=== PATIENT | male | born 1990 | race Caucasian/White ===

== ENCOUNTER 2019-11-23 12:23 | Emergency (ER) | payer SELFPAY ==
[~2019-11-23] VITALS: Ht 177.8 cm; Wt 113.0 kg
[2019-11-23] MEDS ORDERED: AMOX500C2 PO (13:19)
[2019-11-23] MEDS ORDERED: HYDR-3870 PO (13:19)
--- NOTE | 2019-11-23 13:21 | ED EENT ---
History of Present Illness General Chief Complaint: Dental Problems/Pain Stated Complaint: DENTAL PAIN Nursing Triage Note: Pt c/o R sided dental pain for over a week. Pt unsure if pain is top/bottom or both. Pt reports being unable to get an apt with a dentist. Source: patient Exam Limitations: no limitations History of Present Illness Date Seen by Provider: November 23, 2019 Time Seen by Provider: 13:16 Initial Comments To ER with right-sided dental pain for about a week. The pain is intermittent, unsure of his right upper or right lower. He does have a lot of dental crowding he states, perhaps that is the cause of his pain. He cannot identify any one particular tooth that has caused this. Tried to call a dentist but no one is accepting new patients at this time. Timing/Duration: intermittent Severity: mild, moderate Location: mouth, dental Prearrival Treatment: no prearrival treatment Associated Symptoms: denies symptoms Allergies and Home Medications Allergies Coded Allergies: No Known Drug Allergies (Unverified , 11/23/19) Patient Home Medication List Home Medication List Reviewed: Yes Review of Systems Review of Systems Constitutional: see HPI Eyes: No Symptoms Reported Ears: No Symptoms Reported Nose: no symptoms reported Mouth: see HPI Throat: no symptoms reported Respiratory: no symptoms reported Cardiovascular: no symptoms reported Musculoskeletal: no symptoms reported Skin: no symptoms reported Neurological: No Symptoms Reported Hematologic/Lymphatic: No Symptoms Reported Past Zudkrsa-Xaacbg-Ijwtnz Hx Patient Social History Alcohol Use: Occasionally Uses Recreational Drug Use: No Smoking Status: Never a Smoker 2nd Hand Smoke Exposure: No Recent Foreign Travel: No Contact w/Someone Who Travel: No Recent Infectious Disease Expo: No Recent Hopitalizations: No Seasonal Allergies Seasonal Allergies: Yes Past Medical History Surgeries: No Respiratory: No Cardiac: Yes Hypertension Neurological: No Genitourinary: No Gastrointestinal: No Musculoskeletal: No Endocrine: No HEENT: No Cancer: No Psychosocial: Yes Depression Integumentary: No Blood Disorders: No Physical Exam Vital Signs Vital Signs - First Documented 11/23/19 13:03 Temp 36.7 Pulse 86 Resp 18 B/P (MAP) 139/82 (101) Pulse Ox 98 O2 Delivery Room Air Height, Weight, BMI Height: '" Weight: lbs. oz. kg; 35.00 BMI Method: General Appearance: WD/WN, no apparent distress Eyes: bilateral eye normal inspection, bilateral eye PERRL, bilateral eye EOMI Ears: bilateral ear auricle normal, bilateral ear canal normal, bilateral ear TM normal Mouth/Throat: normal mouth inspection, pharynx normal, other (no palpable fluctuant abscess, no does have some overcrowding of teeth.) Neck: non-tender, full range of motion Respiratory: lungs clear, normal breath sounds, no respiratory distress, no accessory muscle use Neurologic/Psychiatric: alert, normal mood/affect, oriented x 3 Skin: normal color, warm/dry Progress/Results/Core Measures Results/Orders Vital Signs/I&O 11/23/19 13:03 Temp 36.7 Pulse 86 Resp 18 B/P (MAP) 139/82 (101) Pulse Ox 98 O2 Delivery Room Air Blood Pressure Mean: 101 Departure Impression Primary Impression: Pain, dental Disposition: HOME, SELF-CARE Condition: Stable Departure-Patient Inst. Decision time for Depature: 13:19 Referrals: [facility] (PCP) Primary Care Physician Patient Instructions: Gingivitis (DC), Dental Pain Add. Discharge Instructions: 1. Call a dentist of your choosing to be seen. Medication as directed. All discharge instructions reviewed with patient and/or family. Voiced understanding. Scripts Amoxicillin (Amoxicillin) 500 Mg Capsule 500 MG PO TID, #21 CAP 0 Refills Prov: TRINA BARBER APRN 11/23/19 TRINA BARBER APRN November 23, 2019 13:21
[2019-11-23 13:32] VITALS: BP 139/82
--- OUTSIDE RECORDS SUMMARY | 2019-11-23 15:21 | XMS REPORT ---
Author Author Charlie SHARP Organization [facility] Address [address] [place] [address] Care Team Providers Care Clerk Of Court Name Role Phone KELSY SHARP Unavailable PROBLEMS Type Condition ICD9-CM Code [id number] Code Onset Dates Condition S tatus SNOMED Code Problem Essential hypertension I10 Active 61199695 Problem Moderate episode of recurrent major depressive disorder F33.1 Active 388233887 Problem Major depressive disorder, single episode, moderate F32.1 Active 43652002 ALLERGIES No Information ENCOUNTERS Encounter Location Date Diagnosis [place] [address] [facility] [id number] [address] [place] [phone] Jun, [place] [address] [id number] [address] [place] [phone] Feb, Moderate episode of recurren t major depressive disorder F33.1 [place] [address] [id number] [address] [place] [phone] Feb, Essential hypertension I10 a nd Major depressive disorder, single episode, moderate F32.1 [place] [address] [id number] [address] [place] [phone] Oct, Moderate episode of recurren t major depressive disorder F33.1 [facility] [address] [id number] [address] [place] [phone] Sep, Moderate episode of recurren t major depressive disorder F33.1 [place] [address] [id number] [address] [place] [phone] Sep, Moderate episode of recurren t major depressive disorder F33.1 [place] [address] [facility] [id number] [address] [place] [phone] Aug, Moderate episode of recurren t major depressive disorder F33.1 [facility] [address] [id number] [address] [place] [phone] Jul, Moderate episode of recurren t major depressive disorder F33.1 [facility] [address] [id number] [address] [place] [phone] Apr, Moderate episode of recurren t major depressive disorder F33.1 [facility] [address] [id number] [address] [place] [phone] Apr, Essential hypertension I10 [facility] [address] [id number] [address] [place] [phone] Dec, Moderate episode of recurren t major depressive disorder F33.1 [facility] [address] [id number] [address] [place] [phone] November, Major depressive disorder, s ramin episode, moderate F32.1 [facility] [address] [id number] [address] [place] [phone] November, [facility] [address] [id number] [address] [place] [phone] November, Depressive disorder F32.9 an d Essential hypertension I10 [facility] [address] [id number] [address] [place] [phone] November, [facility] [address] [facility] [id number] [address] [place] [phone] Sep, Acute bronchitis due to infe ction J20.8 [facility] [address] [id number] [address] [place] [phone] May, Essential hypertension I10 [facility] [address] [id number] [address] [place] [phone] Apr, [facility] [address] [facility] [id number] [address] [place] [phone] 17 Aug, 2016 Essential hypertension I10 [facility] [address] [id number] [address] [place] [phone] Jun, Other viral agents as the ca use of diseases classified elsewhere B97.89 ; Acute upper respiratory infection, unspecified J06.9 and Cough R05 [facility] [address] [id number] [address] [place] [phone] Feb, Essential hypertension I10 [facility] [address] [id number] [address] [place] [phone] Jan, [facility] [address] [id number] [address] [place] [phone] Jan, Essential hypertension, pj gn 401.1 [facility] [address] [id number] [address] [place] [phone] Oct, [facility] [address] [facility] [id number] [address] [place] [phone] Oct, [facility] [address] [id number] [address] [place] [phone] Jul, [facility] [address] [id number] [address] [place] [phone] Jul, [facility] [address] [facility] [id number] [address] [place] [phone] Jul, [facility] [address] [facility] [id number] [address] [place] [phone] Jul, [facility] [address] [id number] [address] [place] [phone] Jun, [facility] [address] [id number] [address] [place] [phone] Jun, [facility] [address] [id number] [address] [place] [phone] Jun, [facility] [address] [facility] [id number] [address] [place] [phone] Jun, [facility] [address] [id number] [address] [place] [phone] May, [facility] [address] [id number] [address] [place] [phone] May, [facility] [address] [id number] [address] [place] [phone] Feb, [facility] [address] [id number] [address] [place] [phone] Feb, [facility] [address] [id number] [address] [place] [phone] Feb, [facility] [address] [id number] [address] [place] [phone] Feb, [facility] [address] [id number] [address] [place] [phone] Feb, [facility] [address] [id number] [address] [place] [phone] Feb, [facility] [address] [id number] [address] [place] [phone] Jan, [facility] [address] [id number] [address] [place] [phone] Jan, [facility] [address] [id number] [address] [place] [phone] Jan, [facility] [address] [id number] [address] [place] [phone] Jan, [facility] [address] [id number] [address] [place] [phone] Jan, [facility] [address] [id number] [address] [place] [phone] Jan, IMMUNIZATIONS No Known Immunizations SOCIAL HISTORY Never Assessed REASON FOR VISIT PLAN OF CARE VITAL SIGNS Height 69 in 2014-02-10 Weight 232.99 lbs 2014-02-10 Temperature 98.5 degrees Fahrenheit 2014-02-10 Heart Rate 84 bpm 2014-02-10 Respiratory Rate 16 2014-02-10 Blood pressure systolic 158 mmHg 2014-02-10 Blood pressure diastolic 104 mmHg 2014-02-10 MEDICATIONS Unknown Medications RESULTS No Results PROCEDURES Procedure Date Ordered Result Body Site ASSAY THYROID STIM HORMONE February 10, 2014 COMPREHEN METABOLIC PANEL February 10, 2014 VENIPUNCT, ROUTINE* February 10, 2014 INSTRUCTIONS MEDICATIONS ADMINISTERED No Known Medications MEDICAL (GENERAL) HISTORY Type Description Date Medical History seasonal allergies Medical History hypertension Medical History no hx seizures
--- OUTSIDE RECORDS SUMMARY | 2019-11-23 15:21 | XMS REPORT ---
Author Author Charlie SHARP Organization [facility] Address [address] [place] [address] Care Team Providers Care Flying Shear Operator Name Role Phone KELSY SHARP Unavailable PROBLEMS Type Condition ICD9-CM Code HDG97-NO Code Onset Dates Condition S tatus SNOMED Code Problem Essential hypertension I10 Active 61257769 Problem Moderate episode of recurrent major depressive disorder F33.1 Active 608439108 Problem Major depressive disorder, single episode, moderate F32.1 Active 67403815 ALLERGIES No Information ENCOUNTERS Encounter Location Date Diagnosis [facility] [address] [facility] [id number] [address] [place] [phone] 16 Oct, 2019 Acute non-recurrent frontal sinusitis J01.10 [facility] [address] [facility] [id number] [address] [place] [phone] Oct, Laceration of right index fi nger without foreign body with damage to nail, initial encounter S61.310A and Encounter for immunization Z23 [facility] [address] [facility] [id number] [address] [place] [phone] Aug, [facility] [address] [facility] [id number] [address] [place] [phone] Jun, Moderate episode of recurren t major depressive disorder F33.1 [facility] [address] [facility] [id number] [address] [place] [phone] Feb, Moderate episode of recurren t major depressive disorder F33.1 [facility] [address] [facility] [id number] [address] [place] [phone] Feb, Essential hypertension I10 a nd Major depressive disorder, single episode, moderate F32.1 [facility] [address] [facility] [id number] [address] [place] [phone] Oct, Moderate episode of recurren t major depressive disorder F33.1 [facility] [address] [id number] [address] [place] [phone] Sep, Moderate episode of recurren t major depressive disorder F33.1 [facility] [address] [id number] [address] [place] [phone] Sep, Moderate episode of recurren t major depressive disorder F33.1 [facility] [address] [id number] [address] [place] [phone] Aug, Moderate episode of recurren t major depressive disorder F33.1 [facility] [address] [id number] [address] [place] [phone] Jul, Moderate episode of recurren t major depressive disorder F33.1 [facility] [address] [id number] [address] [place] [phone] Apr, Moderate episode of recurren t major depressive disorder F33.1 [facility] [address] [id number] [address] [place] [phone] Apr, Essential hypertension I10 [facility] [address] [id number] [address] [place] [phone] Dec, Moderate episode of recurren t major depressive disorder F33.1 [facility] [address] [id number] [address] [place] [phone] November, Major depressive disorder, s ramin episode, moderate F32.1 [facility] [address] [id number] [address] [place] [phone] November, [facility] [address] [id number] [address] [place] [phone] November, Depressive disorder F32.9 an d Essential hypertension I10 [facility] [address] [id number] [address] [place] [phone] November, [facility] [address] [place] [id number] [address] [place] [phone] Sep, Acute bronchitis due to infe ction J20.8 [facility] [address] [place] [id number] [address] [place] [phone] May, Essential hypertension I10 [facility] [address] [facility] [id number] [address] [place] [phone] Apr, [facility] [address] [facility] [id number] [address] [place] [phone] Aug, Essential hypertension I10 [facility] [address] [facility] [id number] [address] [place] [phone] Jun, Other viral agents as the ca use of diseases classified elsewhere B97.89 ; Acute upper respiratory infection, unspecified J06.9 and Cough R05 [facility] [address] [place] [id number] [address] [place] [phone] Feb, Essential hypertension I10 [facility] [address] [place] [id number] [address] [place] [phone] Jan, [facility] [address] [place] [id number] [address] [place] [phone] Jan, Essential hypertension, pj gn 401.1 [facility] [address] [facility] [id number] [address] [place] [phone] Oct, [facility] [address] [place] [id number] [address] [place] [phone] Oct, [facility] [address] [facility] [id number] [address] [place] [phone] Jul, [facility] [address] [place] [id number] [address] [place] [phone] Jul, [facility] [address] [place] [id number] [address] [place] [id number] Jul, [facility] [address] [place] [id number] [address] [place] [phone] Jul, [facility] [address] [id number] [address] [place] [address], [place] [address] Jun, [facility] [address] [id number] [address] [place] [address], [place] [address] Jun, [facility] [address] [id number] [address] [place] [address], [place] [address] Jun, [facility] [address] [id number] [address] [place] [address], [place] [address] Jun, [facility] [address] [id number] [address] [place] [address], [place] [address] May, [facility] [address] [id number] [address] [place] [address], [place] [address] May, [facility] [address] [id number] [address] [place] [address], [place] [address] Feb, [facility] [address] [id number] [address] [place] [address], [place] [address] Feb, [facility] [address] [id number] [address] [place] [address], [place] [address] Feb, [facility] [address] [id number] [address] [place] [address], [place] [address] Feb, [facility] [address] [id number] [address] [place] [address], [place] [address] Feb, [facility] [address] [id number] [address] [place] [address], [place] [address] Feb, [facility] [address] [id number] [address] [place] [address], [place] [address] Jan, [facility] [address] [id number] [address] [place] [address], [place] [address] Jan, [facility] [address] [id number] [address] [place] [address], [place] [address] Jan, [facility] [address] [id number] [address] [place] [phone] Jan, [facility] [address] [facility] [id number] [address] [place] [id number] Jan, [facility] [address] [facility] [id number] [address] [place] [phone] Jan, IMMUNIZATIONS No Known Immunizations SOCIAL HISTORY Never Assessed REASON FOR VISIT PLAN OF CARE VITAL SIGNS MEDICATIONS No Known Medications RESULTS No Results PROCEDURES No Known procedures INSTRUCTIONS MEDICATIONS ADMINISTERED No Known Medications MEDICAL (GENERAL) HISTORY Type Description Date Medical History seasonal allergies Medical History hypertension Medical History no hx seizures
--- OUTSIDE RECORDS SUMMARY | 2019-11-23 15:21 | XMS REPORT ---
Author Author Charlie Fraga Doctor Organization [facility] Address Unknown Phone Unavailable Care Team Providers Care Social Insurance Adviser Name Role Phone Migration, Doctor Unavailable Unavailable PROBLEMS Type Condition ICD9-CM Code [id number] Code Onset Dates Condition S tatus SNOMED Code Problem Essential hypertension I10 Active 45221072 Problem Moderate episode of recurrent major depressive disorder F33.1 Active 790694195 Problem Major depressive disorder, single episode, moderate F32.1 Active [id number] ALLERGIES No Information ENCOUNTERS Encounter Location Date Diagnosis [facility] [address] [id number] [address] [place] [address] November, [facility] [address] [id number] [address] [place] [address] Oct, Moderate episode of recurren t major depressive disorder F33.1 [facility] [address] [id number] [address] [place] [address] Sep, Moderate episode of recurren t major depressive disorder F33.1 [facility] [address] [id number] [address] [place] [address] Sep, Moderate episode of recurren t major depressive disorder F33.1 [facility] [address] [id number] [address] [place] [address] Aug, Moderate episode of recurren t major depressive disorder F33.1 [facility] [address] [id number] [address] [place] [address] Jul, Moderate episode of recurren t major depressive disorder F33.1 [facility] [address] [id number] [address] [place] [address] Apr, Moderate episode of recurren t major depressive disorder F33.1 [facility] [address] [id number] [address] [place] [address] Apr, Essential hypertension I10 [facility] [address] [facility] [id number] [address] [place] [address] Dec, Moderate episode of recurren t major depressive disorder F33.1 [facility] [address] [facility] [address] [facility] [id number] [address] [place] [address] November, Major depressive disorder, s ramin episode, moderate F32.1 [facility] [address] [facility] [address] [facility] [id number] [address] [place] [address] November, [facility] [address] [facility] [address] [facility] [id number] [address] [place] [address] November, Depressive disorder F32.9 an d Essential hypertension I10 [facility] [address] [facility] [address] [facility] [id number] [address] [place] [address] November, [facility] [address] [address] Sep, Acute bronchitis due to infe ction J20.8 [facility] [address] [facility] [address] [facility] [id number] [address] [place] [address] May, Essential hypertension I10 [facility] [address] [place] [id number] [address] [place] [phone] Apr, [facility] [address] [place] [id number] [address] [place] [phone] Aug, Essential hypertension I10 [facility] [address] [facility] [address] [facility] [id number] [address] [place] [address] Jun, Other viral agents as the ca use of diseases classified elsewhere B97.89 ; Acute upper respiratory infection, unspecified J06.9 and Cough R05 [facility] [address] [facility] [address] [facility] [id number] [address] [place] [address] Feb, Essential hypertension I10 [facility] [address] [place] [id number] [address] [place] [address] Jan, [facility] [address] [id number] [address] [place] [address], [place] [address] Jan, Essential hypertension, pj gn 401.1 [facility] [address] [id number] [address] [place] [address], [place] [address] Oct, [facility] [address] [id number] [address] [place] [address], [place] [address] Oct, [facility] [address] [id number] [address] [place] [address], [place] [address] Jul, [facility] [address] [id number] [address] [place] [address], [place] [address] Jul, [facility] [address] [id number] [address] [place] [address], [place] [address] Jul, [facility] [address] [id number] [address] [place] [address], [place] [address] Jul, [facility] [address] [id number] [address] [place] [address], [place] [address] Jun, [facility] [address] [id number] [address] [place] [address], [place] [address] Jun, [facility] [address] [id number] [address] [place] [address] Jun, [facility] [address] [id number] [address] [place] [address] Jun, [facility] [address] [id number] [address] [place] [address] May, [facility] [address] [id number] [address] [place] [address], [place] [address] May, [facility] [address] [id number] [address] [place] [address], [place] [address] Feb, [facility] [address] [id number] [address] [place] [address] Feb, [facility] [address] [id number] [address] [place] [address] Feb, [facility] [address] [id number] [address] [place] [address] Feb, [facility] [address] [id number] [address] [place] [address] Feb, [facility] [address] [id number] [address] [place] [address] Feb, [facility] [address] [id number] [address] [place] [address] Jan, [facility] [address] [id number] [address] [place] [address] Jan, [facility] [address] [id number] [address] [place] [address] Jan, [facility] [address] [id number] [address] [place] [address] Jan, [facility] [address] [id number] [address] [place] [address] Jan, [facility] [address] [id number] [address] [place] [address] Jan, IMMUNIZATIONS No Known Immunizations SOCIAL HISTORY Never Assessed REASON FOR VISIT [facility] PLAN OF CARE VITAL SIGNS MEDICATIONS Unknown Medications RESULTS No Results PROCEDURES No Known procedures INSTRUCTIONS MEDICATIONS ADMINISTERED No Known Medications MEDICAL (GENERAL) HISTORY Type Description Date Medical History seasonal allergies Medical History hypertension Medical History no hx seizures
--- OUTSIDE RECORDS SUMMARY | 2019-11-23 15:21 | XMS REPORT ---
Author Author Charlie SAWYER Organization [facility] Address Unknown Care Team Providers Care It Administrator Name Role Phone SREEDHAR SAWYER Unavailable PROBLEMS Type Condition ICD9-CM Code [id number] Code Onset Dates Condition S tatus SNOMED Code Problem Moderate episode of recurrent major depressive disorder F33.1 Active [id number] Problem Essential hypertension I10 Active 92033470 Problem Major depressive disorder, single episode, moderate F32.1 Active 60873401 ALLERGIES No Information ENCOUNTERS Encounter Location Date Diagnosis [place] [address] [facility] [id number] [address] [place] [address] Dec, Moderate episode of recurren t major depressive disorder F33.1 [facility] [address] [id number] [address] [place] [address] November, Major depressive disorder, s ramin episode, moderate F32.1 [facility] [address] [id number] [address] [place] [address] November, [facility] [address] [facility] [id number] [address] [place] [address] November, Depressive disorder F32.9 an d Essential hypertension I10 [facility] [address] [id number] [address] [place] [address] November, [facility] [address] [facility] [id number] [address] [place] [address] Sep, Acute bronchitis due to infe ction J20.8 [facility] [address] [id number] [address] [place] [address] May, Essential hypertension I10 [place] [id number] [facility] [id number] [address] [place] [address] Apr, [facility] [address] [facility] [id number] [address] [place] [address] Aug, Essential hypertension I10 [facility] [address] [facility] [id number] [address] [place] [address] Jun, Other viral agents as the ca use of diseases classified elsewhere B97.89 ; Acute upper respiratory infection, unspecified J06.9 and Cough R05 [facility] [address] [facility] [id number] [address] [place] [address] Feb, Essential hypertension I10 [facility] [address] [facility] [id number] [address] [place] [address] Jan, [facility] [address] [facility] [id number] [address] [place] [address] Jan, Essential hypertension, pj gn 401.1 [facility] [address] [facility] [id number] [address] [place] [address] Oct, [facility] [address] [facility] [id number] [address] [place] [address] Oct, [facility] [address] [facility] [id number] [address] [place] [address] Jul, [facility] [address] [facility] [id number] [address] [place] [address] Jul, [facility] [address] [facility] [id number] [address] [place] [address] Jul, [facility] [address] [facility] [id number] [address] [place] [address] Jul, [facility] [address] [facility] [id number] [address] [place] [address] Jun, [facility] [address] [facility] [id number] [address] [place] [address] Jun, [facility] [address] [facility] [id number] [address] [place] [address] Jun, [facility] [address] [id number] [address] [place] [address], [place] [address] Jun, [facility] [address] [id number] [address] [place] [address], [place] [address] May, [facility] [address] [id number] [address] [place] [address], [place] [address] May, [facility] [address] [id number] [address] [place] [address], [place] [address] Feb, [facility] [address] [id number] [address] [place] [address], [place] [address] Feb, [facility] [address] [id number] [address] [place] [address], [place] [address] Feb, [facility] [address] [id number] [address] [place] [address], [place] [address] Feb, [facility] [address] [id number] [address] [place] [address], [place] [address] Feb, [facility] [address] [id number] [address] [place] [address], [place] [address] Feb, [facility] [address] [id number] [address] [place] [address] Jan, [facility] [address] [id number] [address] [place] [address], [place] [address] Jan, [facility] [address] [id number] [address] [place] [address] Jan, [facility] [address] [id number] [address] [place] [address] Jan, [facility] [address] [id number] [address] [place] [address] Jan, [facility] [address] [id number] [address] [place] [address] Jan, IMMUNIZATIONS No Known Immunizations SOCIAL HISTORY Never Assessed REASON FOR VISIT [facility] PLAN OF CARE Activity Details Follow Up next available Reason: VITAL SIGNS MEDICATIONS Medication Instructions Dosage Frequency Start Date End Date Duration S tatus Lisinopril 20 mg Orally Once a day 1 tablet 24h November, 90 days Active Sertraline HCl 50 mg Orally Once a day after evening meal 1 tablet November, 30 day(s) Active RESULTS No Results PROCEDURES Procedure Date Ordered Result Body Site Psych diagnostic evaluation, established patient December 17, 2017 INSTRUCTIONS MEDICATIONS ADMINISTERED No Known Medications MEDICAL (GENERAL) HISTORY Type Description Date Medical History seasonal allergies Medical History hypertension
--- OUTSIDE RECORDS SUMMARY | 2019-11-23 15:21 | XMS REPORT ---
Author Author Charlie MANZANARES Organization [facility] Address [address] [place] [address] Care Team Providers Care Breeding Technician Name Role Phone MOISES MANZANARES Unavailable PROBLEMS Type Condition ICD9-CM Code [id number] Code Onset Dates Condition S tatus SNOMED Code Problem Essential hypertension I10 Active 51830408 Problem Moderate episode of recurrent major depressive disorder F33.1 Active 808839584 Problem Major depressive disorder, single episode, moderate F32.1 Active 25264615 ALLERGIES No Information ENCOUNTERS Encounter Location Date Diagnosis [facility] [address] [id number] [address] [place] [address] Feb, [facility] [address] [id number] [address] [place] [address] Jan, [facility] [address] [id number] [address] [place] [address] Oct, Moderate episode of recurren t major depressive disorder F33.1 [facility] [address] [id number] [address] [place] [address] Sep, Moderate episode of recurren t major depressive disorder F33.1 [facility] [address] [id number] [address] [place] [address] Sep, Moderate episode of recurren t major depressive disorder F33.1 [facility] [address] [id number] [address] [place] [address] Aug, Moderate episode of recurren t major depressive disorder F33.1 [facility] [address] [id number] [address] [place] [address] Jul, Moderate episode of recurren t major depressive disorder F33.1 [facility] [address] [id number] [address] [place] [address] Apr, Moderate episode of recurren t major depressive disorder F33.1 [facility] [address] [facility] [id number] [address] [place] [address] Apr, Essential hypertension I10 [facility] [address] [facility] [id number] [address] [place] [address] Dec, Moderate episode of recurren t major depressive disorder F33.1 [facility] [address] [facility] [id number] [address] [place] [address] November, Major depressive disorder, s ramin episode, moderate F32.1 [facility] [address] [facility] [id number] [address] [place] [address] November, [facility] [address] [facility] [id number] [address] [place] [address] November, Depressive disorder F32.9 an d Essential hypertension I10 [facility] [address] [place] [id number] [address] [place] [address] November, [facility] [address] [facility] [id number] [address] [place] [address] Sep, Acute bronchitis due to infe ction J20.8 [facility] [address] [facility] [id number] [address] [place] [address] May, Essential hypertension I10 [facility] [address] [facility] [id number] [address] [place] [address] Apr, [facility] [address] [facility] [id number] [address] [place] [address] Aug, Essential hypertension I10 [facility] [address] [facility] [id number] [address] [place] [address] Jun, Other viral agents as the ca use of diseases classified elsewhere B97.89 ; Acute upper respiratory infection, unspecified J06.9 and Cough R05 [facility] [address] [facility] [id number] [address] [place] [address] Feb, Essential hypertension I10 [facility] [address] [id number] [address] [place] [address], [place] [address] Jan, [facility] [address] [id number] [address] [place] [address], [place] [address] Jan, Essential hypertension, pj gn 401.1 [facility] [address] [id number] [address] [place] [address], [place] [address] Oct, [facility] [address] [id number] [address] [place] [address], [place] [address] Oct, [facility] [address] [id number] [address] [place] [address], [place] [address] Jul, [facility] [address] [id number] [address] [place] [address], [place] [address] Jul, [facility] [address] [id number] [address] [place] [address], [place] [address] Jul, [facility] [address] [id number] [address] [place] [address], [place] [address] Jul, [facility] [address] [id number] [address] [place] [address], [place] [address] Jun, [facility] [address] [id number] [address] [place] [address], [place] [address] Jun, [facility] [address] [id number] [address] [place] [address], [place] [address] Jun, [facility] [address] [id number] [address] [place] [address], [place] [address] Jun, [facility] [address] [id number] [address] [place] [address], [place] [address] May, [facility] [address] [id number] [address] [place] [address], [place] [address] May, [facility] [address] [id number] [address] [place] [address], [place] [address] Feb, [facility] [address] [id number] [address] [place] [address] Feb, [facility] [address] [id number] [address] [place] [address] Feb, [facility] [address] [id number] [address] [place] [address] Feb, [facility] [address] [id number] [address] [place] [phone] Feb, [facility] [address] [id number] [address] [place] [address] Feb, [facility] [address] [id number] [address] [place] [address] Jan, [facility] [address] [id number] [address] [place] [address] Jan, [facility] [address] [id number] [address] [place] [address] Jan, [facility] [address] [id number] [address] [place] [address] Jan, [facility] [address] [id number] [address] [place] [address] Jan, [facility] [address] [id number] [address] [place] [phone] Jan, IMMUNIZATIONS No Known Immunizations SOCIAL HISTORY Never Assessed REASON FOR VISIT Intake PLAN OF CARE Activity Details Follow Up next available Reason:anger VITAL SIGNS MEDICATIONS Medication Instructions Dosage Frequency Start Date End Date Duration S tatus Lisinopril 20 mg Orally Once a day 1 tablet 24h November, 90 days Active Wellbutrin SR 100 MG Orally in the morning and one midday 1 tablet Aug, 30 day(s) Active Sertraline HCl 50 mg Orally Once a day 1 tablet 24h Active RESULTS No Results PROCEDURES Procedure Date Ordered Result Body Site Psych diagnostic evaluation, established patient September 30, 2018 INSTRUCTIONS MEDICATIONS ADMINISTERED No Known Medications MEDICAL (GENERAL) HISTORY Type Description Date Medical History seasonal allergies Medical History hypertension Medical History no hx seizures
--- OUTSIDE RECORDS SUMMARY | 2019-11-23 15:21 | XMS REPORT ---
Author Author Charlie SERNA Organization [facility] Address [address] [place] [address] Care Team Providers Care Bolt Loader Name Role Phone KAREEMBJMICHAEL Unavailable PROBLEMS Type Condition ICD9-CM Code [id number] Code Onset Dates Condition S tatus SNOMED Code Problem Moderate episode of recurrent major depressive disorder F33.1 Active 466393796 Problem Essential hypertension I10 Active 27875477 Problem Major depressive disorder, single episode, moderate F32.1 Active 41487357 ALLERGIES No Known Allergies ENCOUNTERS Encounter Location Date Diagnosis [facility] [address] [id number] [address] [place] [phone] Dec, Moderate episode of recurren t major depressive disorder F33.1 [facility] [address] [id number] [address] [place] [address] November, Major depressive disorder, s ramin episode, moderate F32.1 [facility] [address] [id number] [address] [place] [address] November, [facility] [address] [id number] [address] [place] [phone] November, Depressive disorder F32.9 an d Essential hypertension I10 [facility] [address] [id number] [address] [place] [phone] November, [facility] [address] [id number] [address] [place] [address] Sep, Acute bronchitis due to infe ction J20.8 [facility] [address] [id number] [address] [place] [address] May, Essential hypertension I10 [facility] [address] [id number] [address] [place] [address] Apr, [facility] [address] [id number] [address] [place] [address] Aug, Essential hypertension I10 [facility] [address] [id number] [address] [place] [address] Jun, Other viral agents as the ca use of diseases classified elsewhere B97.89 ; Acute upper respiratory infection, unspecified J06.9 and Cough R05 [facility] [address] [id number] [address] [place] [address] Feb, Essential hypertension I10 [facility] [address] [id number] [address] [place] [address] Jan, [facility] [address] [facility] [id number] [address] [place] [address] Jan, Essential hypertension, pj gn 401.1 [facility] [address] [id number] [address] [place] [phone] Oct, [facility] [address] [id number] [address] [place] [phone] Oct, [facility] [address] [facility] [id number] [address] [place] [phone] Jul, [facility] [address] [facility] [id number] [address] [place] [address] Jul, [facility] [address] [id number] [address] [place] [phone] Jul, [facility] [address] [id number] [address] [place] [address] Jul, [facility] [address] [id number] [address] [place] [phone] Jun, [facility] [address] [facility] [id number] [address] [place] [phone] Jun, [facility] [address] [id number] [address] [place] [address] Jun, [facility] [address] [id number] [address] [place] [address], [place] [address] Jun, [facility] [address] [id number] [address] [place] [phone] May, [facility] [address] [id number] [address] [place] [address], [place] [address] May, [facility] [address] [id number] [address] [place] [address], [place] [address] Feb, [facility] [address] [id number] [address] [place] [address], [place] [address] Feb, [facility] [address] [id number] [address] [place] [address], [place] [address] Feb, [facility] [address] [id number] [address] [place] [address], [place] [address] Feb, [facility] [address] [id number] [address] [place] [address], [place] [address] Feb, [facility] [address] [id number] [address] [place] [phone] Feb, [facility] [address] [id number] [address] [place] [address], [place] [address] Jan, [facility] [address] [id number] [address] [place] [address] Jan, [facility] [address] [id number] [address] [place] [address] Jan, [facility] [address] [id number] [address] [place] [address] Jan, [facility] [address] [id number] [address] [place] [phone] Jan, [facility] [address] [id number] [address] [place] [address] Jan, IMMUNIZATIONS No Known Immunizations SOCIAL HISTORY Never Assessed REASON FOR VISIT intake -Hilario MCCANN PLAN OF CARE Activity Details Follow Up 6 Weeks, prn Reason: VITAL SIGNS Height 69 in 2017-12-22 Weight 227.4 lbs 2017-12-22 Heart Rate 88 bpm 2017-12-22 Respiratory Rate 20 2017-12-22 BMI 33.58 kg/m2 2017-12-22 Blood pressure systolic 130 mmHg 2017-12-22 Blood pressure diastolic 74 mmHg 2017-12-22 MEDICATIONS Medication Instructions Dosage Frequency Start Date End Date Duration S tatus Multi Vitamin Daily Acti ve Sertraline HCl 50 mg Orally Once a day after evening meal 1 tablet November, Active Lisinopril 20 mg Orally Once a day 1 tablet 24h November, 90 days Active RESULTS No Results PROCEDURES No Known procedures INSTRUCTIONS MEDICATIONS ADMINISTERED No Known Medications MEDICAL (GENERAL) HISTORY Type Description Date Medical History seasonal allergies Medical History hypertension
--- OUTSIDE RECORDS SUMMARY | 2019-11-23 15:21 | XMS REPORT ---
Author Author Charlie SHARP Organization [facility] Address [address] [place] [address] Care Team Providers Care Truck Trailer Final Inspector Name Role Phone KELSY SHARP Unavailable PROBLEMS Type Condition ICD9-CM Code [id number] Code Onset Dates Condition S tatus SNOMED Code Problem Essential hypertension I10 Active 84557986 Problem Moderate episode of recurrent major depressive disorder F33.1 Active 175004194 Problem Major depressive disorder, single episode, moderate F32.1 Active 81576821 ALLERGIES No Information ENCOUNTERS Encounter Location Date Diagnosis [place] [address] [address] [facility] [id number] [address] [place] [address] Feb, [place] [address] [id number] [address] [place] [address] Feb, Essential hypertension I10 a nd Major depressive disorder, single episode, moderate F32.1 [place] [address] [id number] [address] [place] [address] Oct, Moderate episode of recurren t major depressive disorder F33.1 [place] [address] [id number] [address] [place] [address] Sep, Moderate episode of recurren t major depressive disorder F33.1 [facility] [address] [id number] [address] [place] [address] Sep, Moderate episode of recurren t major depressive disorder F33.1 [place] [address] [id number] [address] [place] [address] Aug, Moderate episode of recurren t major depressive disorder F33.1 [place] [address] [id number] [address] [place] [address] Jul, Moderate episode of recurren t major depressive disorder F33.1 [facility] [address] [id number] [address] [place] [address] Apr, Moderate episode of recurren t major depressive disorder F33.1 [facility] [address] [id number] [address] [place] [address] Apr, Essential hypertension I10 [facility] [address] [id number] [address] [place] [address] Dec, Moderate episode of recurren t major depressive disorder F33.1 [facility] [address] [id number] [address] [place] [address] November, Major depressive disorder, s ramin episode, moderate F32.1 [facility] [address] [id number] [address] [place] [address] November, [facility] [address] [facility] [id number] [address] [place] [address] November, Depressive disorder F32.9 an d Essential hypertension I10 [facility] [address] [id number] [address] [place] [address] November, [facility] [address] [facility] [id number] [address] [place] [address] Sep, Acute bronchitis due to infe ction J20.8 [facility] [address] [facility] [id number] [address] [place] [address] May, Essential hypertension I10 [facility] [address] [id number] [address] [place] [address] Apr, [facility] [address] [facility] [id number] [address] [place] [address] Aug, Essential hypertension I10 [facility] [address] [id number] [address] [place] [address] Jun, Other viral agents as the ca use of diseases classified elsewhere B97.89 ; Acute upper respiratory infection, unspecified J06.9 and Cough R05 [facility] [address] [id number] [address] [place] [address], [place] [address] Feb, Essential hypertension I10 [facility] [address] [id number] [address] [place] [address], [place] [address] Jan, [facility] [address] [id number] [address] [place] [address], [place] [address] Jan, Essential hypertension, pj gn 401.1 [facility] [address] [id number] [address] [place] [address], [place] [address] Oct, [facility] [address] [id number] [address] [place] [address], [place] [address] Oct, [facility] [address] [id number] [address] [place] [address], [place] [address] Jul, [facility] [address] [id number] [address] [place] [address], [place] [address] Jul, [facility] [address] [id number] [address] [place] [address], [place] [address] Jul, [facility] [address] [id number] [address] [place] [address], [place] [address] Jul, [facility] [address] [id number] [address] [place] [address], [place] [address] Jun, [facility] [address] [id number] [address] [place] [address], [place] [address] Jun, [facility] [address] [id number] [address] [place] [address], [place] [address] Jun, [facility] [address] [id number] [address] [place] [address], [place] [address] Jun, [facility] [address] [id number] [address] [place] [address], [place] [address] May, [facility] [address] [id number] [address] [place] [address], [place] [address] May, [facility] [address] [id number] [address] [place] [phone] Feb, [facility] [address] [id number] [address] [place] [address] Feb, [facility] [address] [id number] [address] [place] [address] Feb, [facility] [address] [id number] [address] [place] [address] Feb, [facility] [address] [id number] [address] [place] [address] Feb, [facility] [address] [id number] [address] [place] [address] Feb, [facility] [address] [id number] [address] [place] [address] Jan, [facility] [address] [id number] [address] [place] [address] Jan, [facility] [address] [id number] [address] [place] [address] Jan, [facility] [address] [id number] [address] [place] [address] Jan, [facility] [address] [id number] [address] [place] [address] Jan, [facility] [address] [id number] [address] [place] [address] Jan, IMMUNIZATIONS No Known Immunizations SOCIAL HISTORY Never Assessed REASON FOR VISIT PLAN OF CARE VITAL SIGNS Height 69 in 2014-06-22 Weight 237.7 lbs 2014-06-22 Temperature 97.5 degrees Fahrenheit 2014-06-22 Heart Rate 82 bpm 2014-06-22 Respiratory Rate 16 2014-06-22 Blood pressure systolic 142 mmHg 2014-06-22 Blood pressure diastolic 84 mmHg 2014-06-22 MEDICATIONS Unknown Medications RESULTS No Results PROCEDURES No Known procedures INSTRUCTIONS MEDICATIONS ADMINISTERED No Known Medications MEDICAL (GENERAL) HISTORY Type Description Date Medical History seasonal allergies Medical History hypertension Medical History no hx seizures
--- OUTSIDE RECORDS SUMMARY | 2019-11-23 15:21 | XMS REPORT ---
Author Author Charlie SHARP Organization [facility] Address [address] [place] [address] Care Team Providers Care Afternoon Nanny Name Role Phone KELYS SHARP Unavailable PROBLEMS Type Condition ICD9-CM Code ENE37-HG Code Onset Dates Condition S tatus SNOMED Code Problem Essential hypertension I10 Active 44963102 Problem Moderate episode of recurrent major depressive disorder F33.1 Active 964188484 Problem Major depressive disorder, single episode, moderate F32.1 Active 80947401 ALLERGIES No Information ENCOUNTERS Encounter Location Date Diagnosis [facility] [address] [facility] [id number] [address] [place] [address] 16 Oct, 2019 Acute non-recurrent frontal sinusitis J01.10 [facility] [address] [facility] [id number] [address] [place] [address] Oct, Laceration of right index fi nger without foreign body with damage to nail, initial encounter S61.310A and Encounter for immunization Z23 [facility] [address] [facility] [id number] [address] [place] [address] Aug, [facility] [address] [facility] [id number] [address] [place] [address] Jun, Moderate episode of recurren t major depressive disorder F33.1 [facility] [address] [facility] [id number] [address] [place] [phone] Feb, Moderate episode of recurren t major depressive disorder F33.1 [facility] [address] [facility] [id number] [address] [place] [address] Feb, Essential hypertension I10 a nd Major depressive disorder, single episode, moderate F32.1 [facility] [address] [facility] [id number] [address] [place] [phone] Oct, Moderate episode of recurren t major depressive disorder F33.1 [facility] [address] [id number] [address] [place] [address] Sep, Moderate episode of recurren t major depressive disorder F33.1 [facility] [address] [id number] [address] [place] [phone] Sep, Moderate episode of recurren t major depressive disorder F33.1 [facility] [address] [id number] [address] [place] [address] Aug, Moderate episode of recurren t major depressive disorder F33.1 [facility] [address] [id number] [address] [place] [phone] Jul, Moderate episode of recurren t major depressive disorder F33.1 [facility] [address] [id number] [address] [place] [address] Apr, Moderate episode of recurren t major depressive disorder F33.1 [facility] [address] [id number] [address] [place] [address] Apr, Essential hypertension I10 [facility] [address] [id number] [address] [place] [address] Dec, Moderate episode of recurren t major depressive disorder F33.1 [facility] [address] [id number] [address] [place] [address] November, Major depressive disorder, s ramin episode, moderate F32.1 [facility] [address] [id number] [address] [place] [address] November, [facility] [address] [id number] [address] [place] [address] November, Depressive disorder F32.9 an d Essential hypertension I10 [facility] [address] [id number] [address] [place] [address] November, [facility] [address] [place] [id number] [address] [place] [address] Sep, Acute bronchitis due to infe ction J20.8 [facility] [address] [place] [id number] [address] [place] [address] May, Essential hypertension I10 [facility] [address] [facility] [id number] [address] [place] [phone] Apr, [facility] [address] [facility] [id number] [address] [place] [address] Aug, Essential hypertension I10 [facility] [address] [facility] [id number] [address] [place] [address] Jun, Other viral agents as the ca use of diseases classified elsewhere B97.89 ; Acute upper respiratory infection, unspecified J06.9 and Cough R05 [facility] [address] [place] [id number] [address] [place] [phone] Feb, Essential hypertension I10 [facility] [address] [place] [id number] [address] [place] [address] Jan, [facility] [address] [place] [id number] [address] [place] [phone] Jan, Essential hypertension, pj gn 401.1 [facility] [address] [facility] [id number] [address] [place] [phone] Oct, [facility] [address] [place] [id number] [address] [place] [phone] Oct, [facility] [address] [facility] [id number] [address] [place] [address] Jul, [facility] [address] [place] [id number] [address] [place] [phone] Jul, [facility] [address] [place] [id number] [address] [place] [address] Jul, [facility] [address] [place] [id number] [address] [place] [phone] Jul, [facility] [address] [id number] [address] [place] [address], [place] [address] Jun, [facility] [address] [id number] [address] [place] [address], [place] [address] Jun, [facility] [address] [id number] [address] [place] [address], [place] [address] Jun, [facility] [address] [id number] [address] [place] [address], [place] [address] Jun, [facility] [address] [id number] [address] [place] [address], [place] [address] May, [facility] [address] [id number] [address] [place] [address], [place] [address] May, [facility] [address] [id number] [address] [place] [address], [place] [address] Feb, [facility] [address] [id number] [address] [place] [address], [place] [address] Feb, [facility] [address] [id number] [address] [place] [address], [place] [address] Feb, [facility] [address] [id number] [address] [place] [address], [place] [address] Feb, [facility] [address] [id number] [address] [place] [address], [place] [address] Feb, [facility] [address] [id number] [address] [place] [address], [place] [address] Feb, [facility] [address] [id number] [address] [place] [address], [place] [address] Jan, [facility] [address] [id number] [address] [place] [address], [place] [address] Jan, [facility] [address] [id number] [address] [place] [address], [place] [address] Jan, [facility] [address] [id number] [address] [place] [phone] Jan, [facility] [address] [facility] [id number] [address] [place] [phone] Jan, [facility] [address] [facility] [id number] [address] [place] [phone] Jan, IMMUNIZATIONS No Known Immunizations SOCIAL HISTORY Never Assessed REASON FOR VISIT PLAN OF CARE VITAL SIGNS Height 69 in 2014-07-19 Weight 239.2 lbs 2014-07-19 Temperature 97.6 degrees Fahrenheit 2014-07-19 Heart Rate 88 bpm 2014-07-19 Respiratory Rate 20 2014-07-19 Blood pressure systolic 140 mmHg 2014-07-19 Blood pressure diastolic 90 mmHg 2014-07-19 MEDICATIONS No Known Medications RESULTS No Results PROCEDURES No Known procedures INSTRUCTIONS MEDICATIONS ADMINISTERED No Known Medications MEDICAL (GENERAL) HISTORY Type Description Date Medical History seasonal allergies Medical History hypertension Medical History no hx seizures
--- OUTSIDE RECORDS SUMMARY | 2019-11-23 15:21 | XMS REPORT ---
Author Author Charlie MORA Organization [facility] Address [address] [place] [address] Care Team Providers Care Power House Control Room Operator Name Role Phone MICHAEL MORA Unavailable PROBLEMS Type Condition ICD9-CM Code [id number] Code Onset Dates Condition S tatus SNOMED Code Problem Essential hypertension I10 Active 62352079 Problem Moderate episode of recurrent major depressive disorder F33.1 Active 610977134 Problem Major depressive disorder, single episode, moderate F32.1 Active 25958105 ALLERGIES No Information ENCOUNTERS Encounter Location Date Diagnosis [place] [id number] [facility] [id number] [address] [place] [address] Feb, [facility] [address] [id number] [address] [place] [phone] Feb, [facility] [address] [facility] [id number] [address] [place] [phone] Oct, Moderate episode of recurren t major depressive disorder F33.1 [place] [address] [facility] [id number] [address] [place] [phone] Sep, Moderate episode of recurren t major depressive disorder F33.1 [facility] [address] [id number] [address] [place] [address] Sep, Moderate episode of recurren t major depressive disorder F33.1 [facility] [address] [facility] [id number] [address] [place] [phone] Aug, Moderate episode of recurren t major depressive disorder F33.1 [facility] [address] [facility] [id number] [address] [place] [address] Jul, Moderate episode of recurren t major depressive disorder F33.1 [facility] [address] [id number] [address] [place] [phone] Apr, Moderate episode of recurren t major depressive disorder F33.1 [facility] [address] [id number] [address] [place] [phone] Apr, Essential hypertension I10 [facility] [address] [facility] [id number] [address] [place] [phone] Dec, Moderate episode of recurren t major depressive disorder F33.1 [facility] [address] [id number] [address] [place] [phone] November, Major depressive disorder, s ramin episode, moderate F32.1 [facility] [address] [id number] [address] [place] [phone] November, [facility] [address] [facility] [id number] [address] [place] [address] November, Depressive disorder F32.9 an d Essential hypertension I10 [facility] [address] [facility] [id number] [address] [place] [phone] November, [facility] [address] [facility] [id number] [address] [place] [address] Sep, Acute bronchitis due to infe ction J20.8 [facility] [address] [facility] [id number] [address] [place] [address] May, Essential hypertension I10 [facility] [address] [facility] [id number] [address] [place] [phone] Apr, [facility] [address] [facility] [id number] [address] [place] [phone] Aug, Essential hypertension I10 [facility] [address] [facility] [id number] [address] [place] [phone] Jun, Other viral agents as the ca use of diseases classified elsewhere B97.89 ; Acute upper respiratory infection, unspecified J06.9 and Cough R05 [facility] [address] [id number] [address] [place] [address], [place] [address] Feb, Essential hypertension I10 [facility] [address] [id number] [address] [place] [address], [place] [address] Jan, [facility] [address] [id number] [address] [place] [address], [place] [address] Jan, Essential hypertension, pj gn 401.1 [facility] [address] [id number] [address] [place] [address], [place] [address] Oct, [facility] [address] [id number] [address] [place] [address], [place] [address] Oct, [facility] [address] [id number] [address] [place] [address], [place] [address] Jul, [facility] [address] [id number] [address] [place] [address], [place] [address] Jul, [facility] [address] [id number] [address] [place] [address], [place] [address] Jul, [facility] [address] [id number] [address] [place] [address], [place] [address] Jul, [facility] [address] [id number] [address] [place] [address], [place] [address] Jun, [facility] [address] [id number] [address] [place] [address], [place] [address] Jun, [facility] [address] [id number] [address] [place] [address], [place] [address] Jun, [facility] [address] [id number] [address] [place] [address], [place] [address] Jun, [facility] [address] [id number] [address] [place] [address], [place] [address] May, [facility] [address] [id number] [address] [place] [address], [place] [address] May, [facility] [address] [id number] [address] [place] [phone] Feb, [facility] [address] [id number] [address] [place] [address] Feb, [facility] [address] [id number] [address] [place] [address] Feb, [facility] [address] [id number] [address] [place] [phone] Feb, [facility] [address] [id number] [address] [place] [phone] Feb, [facility] [address] [id number] [address] [place] [phone] Feb, [facility] [address] [id number] [address] [place] [phone] Jan, [facility] [address] [id number] [address] [place] [address] Jan, [facility] [address] [id number] [address] [place] [phone] Jan, [facility] [address] [id number] [address] [place] [address] Jan, [facility] [address] [id number] [address] [place] [phone] Jan, [facility] [address] [id number] [address] [place] [address] Jan, IMMUNIZATIONS No Known Immunizations SOCIAL HISTORY Never Assessed REASON FOR VISIT rene/ryan wilson ma PLAN OF CARE Activity Details Follow Up 6 Weeks Reason: VITAL SIGNS Height 69 in 2018-09-30 Weight 240.5 lbs 2018-09-30 Heart Rate 93 bpm 2018-09-30 Respiratory Rate 20 2018-09-30 BMI 35.51 kg/m2 2018-09-30 Blood pressure systolic 142 mmHg 2018-09-30 Blood pressure diastolic 78 mmHg 2018-09-30 MEDICATIONS Medication Instructions Dosage Frequency Start Date End Date Duration S tatus Lisinopril 20 mg Orally Once a day 1 tablet 24h November, Active Sertraline HCl 100 MG Orally Once a day 1 tablet 24h 30 days Active Wellbutrin SR 100 MG Orally in the morning and one midday 1 tablet Aug, 30 days Active Sertraline HCl 50 mg Orally Once a day 1 tablet 24h Active RESULTS No Results PROCEDURES No Known procedures INSTRUCTIONS MEDICATIONS ADMINISTERED No Known Medications MEDICAL (GENERAL) HISTORY Type Description Date Medical History seasonal allergies Medical History hypertension Medical History no hx seizures
--- OUTSIDE RECORDS SUMMARY | 2019-11-23 15:21 | XMS REPORT ---
Author Author Charlie Dan Organization [facility] Address [address] [place] [address] Care Team Providers Care Drawer Upfitter Name Role Phone SILAS Dan Unavailable PROBLEMS Type Condition ICD9-CM Code [id number] Code Onset Dates Condition S tatus SNOMED Code Problem Essential hypertension I10 Active 07086857 Problem Moderate episode of recurrent major depressive disorder F33.1 Active 581732322 Problem Major depressive disorder, single episode, moderate F32.1 Active 27019476 ALLERGIES No Information ENCOUNTERS Encounter Location Date Diagnosis [facility] [address] [facility] [id number] [address] [place] [phone] 16 Oct, 2019 Acute non-recurrent frontal sinusitis J01.10 [facility] [address] [facility] [id number] [address] [place] [address] Oct, Laceration of right index fi nger without foreign body with damage to nail, initial encounter S61.310A and Encounter for immunization Z23 [facility] [address] [facility] [id number] [address] [place] [address] Aug, [facility] [address] [facility] [id number] [address] [place] [address] Jun, Moderate episode of recurren t major depressive disorder F33.1 [facility] [address] [facility] [id number] [address] [place] [phone] Feb, Moderate episode of recurren t major depressive disorder F33.1 [facility] [address] [facility] [id number] [address] [place] [address] Feb, Essential hypertension I10 a nd Major depressive disorder, single episode, moderate F32.1 [facility] [address] [id number] [address] [place] [address] Oct, Moderate episode of recurren t major depressive disorder F33.1 [facility] [address] [id number] [address] [place] [phone] Sep, Moderate episode of recurren t major depressive disorder F33.1 [facility] [address] [id number] [address] [place] [address] Sep, Moderate episode of recurren t major depressive disorder F33.1 [facility] [address] [id number] [address] [place] [phone] Aug, Moderate episode of recurren t major depressive disorder F33.1 [facility] [address] [id number] [address] [place] [phone] Jul, Moderate episode of recurren t major depressive disorder F33.1 [facility] [address] [id number] [address] [place] [address] Apr, Moderate episode of recurren t major depressive disorder F33.1 [facility] [address] [id number] [address] [place] [phone] Apr, Essential hypertension I10 [facility] [address] [id number] [address] [place] [phone] Dec, Moderate episode of recurren t major depressive disorder F33.1 [facility] [address] [id number] [address] [place] [address] November, Major depressive disorder, s ramin episode, moderate F32.1 [facility] [address] [id number] [address] [place] [phone] November, [facility] [address] [id number] [address] [place] [phone] November, Depressive disorder F32.9 an d Essential hypertension I10 [facility] [address] [id number] [address] [place] [phone] November, [facility] [address] [facility] [id number] [address] [place] [phone] Sep, Acute bronchitis due to infe ction J20.8 [facility] [address] [facility] [id number] [address] [place] [address] May, Essential hypertension I10 [facility] [address] [place] [id number] [address] [place] [phone] Apr, [facility] [address] [facility] [id number] [address] [place] [phone] Aug, Essential hypertension I10 [facility] [address] [facility] [id number] [address] [place] [phone] Jun, Other viral agents as the ca use of diseases classified elsewhere B97.89 ; Acute upper respiratory infection, unspecified J06.9 and Cough R05 [facility] [address] [facility] [id number] [address] [place] [address] Feb, Essential hypertension I10 [facility] [address] [facility] [id number] [address] [place] [address] Jan, [facility] [address] [place] [id number] [address] [place] [address] Jan, Essential hypertension, pj gn 401.1 [facility] [address] [place] [id number] [address] [place] [phone] Oct, [facility] [address] [place] [id number] [address] [place] [phone] Oct, [facility] [address] [facility] [id number] [address] [place] [phone] Jul, [facility] [address] [place] [id number] [address] [place] [phone] Jul, [facility] [address] [facility] [id number] [address] [place] [phone] Jul, [facility] [address] [place] [id number] [address] [place] [phone] Jul, [facility] [address] [id number] [facility] [place] [address] Jun, [facility] [address] [id number] [address] [place] [address], [place] [address] Jun, [facility] [address] [id number] [address] [place] [address], [place] [address] Jun, [facility] [address] [id number] [address] [place] [address], [place] [address] Jun, [facility] [address] [id number] [address] [place] [address], [place] [address] May, [facility] [address] [id number] [address] [place] [address], [place] [address] May, [facility] [address] [id number] [address] [place] [address], [place] [address] Feb, [facility] [address] [id number] [address] [place] [address], [place] [address] Feb, [facility] [address] [id number] [address] [place] [address], [place] [address] Feb, [facility] [address] [id number] [address] [place] [address], [place] [address] Feb, [facility] [address] [id number] [address] [place] [address], [place] [address] Feb, [facility] [address] [id number] [address] [place] [address], [place] [address] Feb, [facility] [address] [id number] [address] [place] [address], [place] [address] Jan, [facility] [address] [id number] [address] [place] [address], [place] [address] Jan, [facility] [address] [id number] [address] [place] [address], [place] [address] Jan, [facility] [address] [id number] [address] [place] [phone] Jan, [facility] [address] [facility] [id number] [address] [place] [phone] Jan, [facility] [address] [facility] [id number] [address] [place] [phone] Jan, IMMUNIZATIONS No Known Immunizations SOCIAL HISTORY Never Assessed REASON FOR VISIT PLAN OF CARE VITAL SIGNS MEDICATIONS No Known Medications RESULTS No Results PROCEDURES No Known procedures INSTRUCTIONS MEDICATIONS ADMINISTERED No Known Medications MEDICAL (GENERAL) HISTORY Type Description Date Medical History seasonal allergies Medical History hypertension Medical History no hx seizures
--- OUTSIDE RECORDS SUMMARY | 2019-11-23 15:21 | XMS REPORT ---
Author Author Charlie Fraga Doctor Organization [facility] Address Unknown Phone Unavailable Care Team Providers Care Chief Procurement Officer Name Role Phone Migration, Doctor Unavailable Unavailable PROBLEMS Type Condition ICD9-CM Code [id number] Code Onset Dates Condition S tatus SNOMED Code Problem Essential hypertension I10 Active 63700259 Problem Moderate episode of recurrent major depressive disorder F33.1 Active 395693332 Problem Major depressive disorder, single episode, moderate F32.1 Active 47394527 ALLERGIES No Information ENCOUNTERS Encounter Location Date Diagnosis [place] [address] [id number] [address] [place] [phone] Jun, [place] [address] [id number] [address] [place] [phone] Feb, Moderate episode of recurren t major depressive disorder F33.1 [facility] [address] [id number] [address] [place] [phone] Feb, Essential hypertension I10 a nd Major depressive disorder, single episode, moderate F32.1 [facility] [address] [id number] [address] [place] [address] Oct, Moderate episode of recurren t major depressive disorder F33.1 [facility] [address] [id number] [address] [place] [phone] Sep, Moderate episode of recurren t major depressive disorder F33.1 [facility] [address] [id number] [address] [place] [phone] Sep, Moderate episode of recurren t major depressive disorder F33.1 [facility] [address] [id number] [address] [place] [id number] Aug, Moderate episode of recurren t major depressive disorder F33.1 [facility] [address] [id number] [address] [place] [phone] Jul, Moderate episode of recurren t major depressive disorder F33.1 [facility] [address] [facility] [id number] [address] [place] [phone] Apr, Moderate episode of recurren t major depressive disorder F33.1 [facility] [address] [facility] [id number] [address] [place] [phone] Apr, Essential hypertension I10 [facility] [address] [facility] [id number] [address] [place] [phone] Dec, Moderate episode of recurren t major depressive disorder F33.1 [facility] [address] [facility] [id number] [address] [place] [phone] November, Major depressive disorder, s ramin episode, moderate F32.1 [facility] [address] [facility] [id number] [address] [place] [id number] November, [facility] [address] [facility] [id number] [address] [place] [phone] November, Depressive disorder F32.9 an d Essential hypertension I10 [facility] [address] [facility] [id number] [address] [place] [address] November, [facility] [address] [facility] [id number] [address] [place] [address] Sep, Acute bronchitis due to infe ction J20.8 [facility] [address] [facility] [id number] [address] [place] [phone] May, Essential hypertension I10 [facility] [address] [facility] [id number] [address] [place] [phone] Apr, [facility] [address] [facility] [id number] [address] [place] [id number] Aug, Essential hypertension I10 [facility] [address] [facility] [id number] [address] [place] [phone] Jun, Other viral agents as the ca use of diseases classified elsewhere B97.89 ; Acute upper respiratory infection, unspecified J06.9 and Cough R05 [facility] [address] [id number] [address] [place] [phone] Feb, Essential hypertension I10 [facility] [address] [id number] [address] [place] [phone] Jan, [facility] [address] [id number] [address] [place] [id number] Jan, Essential hypertension, pj gn 401.1 [facility] [address] [id number] [address] [place] [address], [place] [address] Oct, [facility] [address] [id number] [address] [place] [phone] Oct, [facility] [address] [id number] [address] [place] [phone] Jul, [facility] [address] [id number] [address] [place] [id number] Jul, [facility] [address] [id number] [address] [place] [phone] Jul, [facility] [address] [id number] [address] [place] [phone] Jul, [facility] [address] [id number] [address] [place] [phone] Jun, [facility] [address] [id number] [address] [place] [phone] Jun, [facility] [address] [id number] [address] [place] [phone] Jun, [facility] [address] [id number] [address] [place] [id number] Jun, [facility] [address] [id number] [address] [place] [id number] May, [facility] [address] [id number] [address] [place] [phone] May, [facility] [address] [id number] [address] [place] [phone] Feb, [facility] [address] [id number] [address] [place] [phone] Feb, [facility] [address] [id number] [address] [place] [phone] Feb, [facility] [address] [id number] [address] [place] [id number] Feb, [facility] [address] [id number] [address] [place] [id number] Feb, [facility] [address] [id number] [address] [place] [id number] Feb, [facility] [address] [id number] [address] [place] [id number] Jan, [facility] [address] [id number] [address] [place] [id number] Jan, [facility] [address] [id number] [address] [place] [id number] Jan, [facility] [address] [id number] [address] [place] [id number] Jan, [facility] [address] [id number] [address] [place] [id number] Jan, [facility] [address] [id number] [address] [place] [id number] Jan, IMMUNIZATIONS No Known Immunizations SOCIAL HISTORY Never Assessed REASON FOR VISIT PLAN OF CARE VITAL SIGNS MEDICATIONS Unknown Medications RESULTS No Results PROCEDURES No Known procedures INSTRUCTIONS MEDICATIONS ADMINISTERED No Known Medications MEDICAL (GENERAL) HISTORY Type Description Date Medical History seasonal allergies Medical History hypertension Medical History no hx seizures
--- OUTSIDE RECORDS SUMMARY | 2019-11-23 15:21 | XMS REPORT ---
Author Author Charlie SERNA MICHAEL Organization [facility] Address [address] [place] [address] Care Team Providers Care Perinatal Director Name Role Phone SADIEBJ GRIMMYLA Unavailable PROBLEMS Type Condition ICD9-CM Code DUX80-AH Code Onset Dates Condition S tatus SNOMED Code Problem Moderate episode of recurrent major depressive disorder F33.1 Active 399676259 Problem Essential hypertension I10 Active 00234906 Problem Major depressive disorder, single episode, moderate F32.1 Active 01165620 ALLERGIES No Information ENCOUNTERS Encounter Location Date Diagnosis [facility] [address] [id number] [address] [place] [phone] Jul, [facility] [address] [id number] [address] [place] [phone] Apr, Moderate episode of recurren t major depressive disorder F33.1 [facility] [address] [id number] [address] [place] [phone] Apr, Essential hypertension I10 [facility] [address] [id number] [address] [place] [phone] Dec, Moderate episode of recurren t major depressive disorder F33.1 [facility] [address] [id number] [address] [place] [phone] November, Major depressive disorder, s ramin episode, moderate F32.1 [facility] [address] [id number] [address] [place] [phone] November, [facility] [address] [id number] [address] [place] [phone] November, Depressive disorder F32.9 an d Essential hypertension I10 [facility] [address] [id number] [address] [place] [phone] November, [facility] [address] [facility] [id number] [address] [place] [phone] Sep, Acute bronchitis due to infe ction J20.8 [facility] [address] [facility] [id number] [address] [place] [phone] May, Essential hypertension I10 [facility] [address] [place] [id number] [address] [place] [phone] Apr, [facility] [address] [facility] [id number] [address] [place] [phone] Aug, Essential hypertension I10 [facility] [address] [facility] [id number] [address] [place] [phone] Jun, Other viral agents as the ca use of diseases classified elsewhere B97.89 ; Acute upper respiratory infection, unspecified J06.[address] [facility] [address] [place] [id number] [address] [place] [phone] Feb, Essential hypertension I10 [facility] [address] [place] [id number] [address] [place] [phone] Jan, [facility] [address] [address] Jan, Essential hypertension, pj gn 401.1 [facility] [address] [place] [id number] [address] [place] [phone] Oct, [facility] [address] [place] [id number] [address] [place] [phone] Oct, [facility] [address] [place] [id number] [address] [place] [phone] Jul, [facility] [address] [place] [id number] [address] [place] [phone] Jul, [facility] [address] [place] [id number] [address] [place] [phone] Jul, [facility] [address] [id number] [address] [place] [address], [place] [address] Jul, [facility] [address] [id number] [address] [place] [address], [place] [address] Jun, [facility] [address] [id number] [address] [place] [address], [place] [address] Jun, [facility] [address] [id number] [address] [place] [address], [place] [address] Jun, [facility] [address] [id number] [address] [place] [address], [place] [address] Jun, [facility] [address] [id number] [address] [place] [address], [place] [address] May, [facility] [address] [id number] [address] [place] [address], [place] [address] May, [facility] [address] [id number] [address] [place] [address], [place] [address] Feb, [facility] [address] [id number] [address] [place] [address], [place] [address] Feb, [facility] [address] [id number] [address] [place] [address], [place] [address] Feb, [facility] [address] [id number] [address] [place] [address], [place] [address] Feb, [facility] [address] [id number] [address] [place] [address], [place] [address] Feb, [facility] [address] [id number] [address] [place] [address], [place] [address] Feb, [facility] [address] [id number] [address] [place] [address], [place] [address] Jan, [facility] [address] [id number] [address] [place] [address], [place] [address] Jan, [facility] [address] [id number] [address] [place] [address], [place] [address] Jan, [facility] [address] [facility] [id number] [address] [place] [phone] Jan, [facility] [address] [facility] [id number] [address] [place] [phone] Jan, [facility] [address] [facility] [id number] [address] [place] [phone] Jan, IMMUNIZATIONS No Known Immunizations SOCIAL HISTORY Never Assessed REASON FOR VISIT f/u PLAN OF CARE Activity Details Follow Up 3 Months Reason: VITAL SIGNS Height 69 in 2018-04-27 Weight 239 lbs 2018-04-27 BMI 35.29 kg/m2 2018-04-27 MEDICATIONS Medication Instructions Dosage Frequency Start Date End Date Duration S tatus Lisinopril 20 mg Orally Once a day 1 tablet 24h November, 90 days Active Multi Vitamin Daily Acti ve Sertraline HCl 50 mg Orally Once a day after evening meal 1 tablet 30 days Active RESULTS No Results PROCEDURES No Known procedures INSTRUCTIONS MEDICATIONS ADMINISTERED No Known Medications MEDICAL (GENERAL) HISTORY Type Description Date Medical History seasonal allergies Medical History hypertension
--- OUTSIDE RECORDS SUMMARY | 2019-11-23 15:21 | XMS REPORT ---
Author Author Charlie SHARP Organization [facility] Address [address] [place] [address] Care Team Providers Care Gauger Chief Name Role Phone KELSY SHARP Unavailable PROBLEMS Type Condition ICD9-CM Code QNF35-AY Code Onset Dates Condition S tatus SNOMED Code Problem Essential hypertension I10 Active 52862701 Problem Moderate episode of recurrent major depressive disorder F33.1 Active 916363533 Problem Major depressive disorder, single episode, moderate F32.1 Active 39732981 ALLERGIES No Information ENCOUNTERS Encounter Location Date Diagnosis [place] [address] [facility] [id number] [address] [place] [phone] Jun, [place] [address] [id number] [address] [place] [phone] Feb, Moderate episode of recurren t major depressive disorder F33.1 [place] [address] [id number] [address] [place] [address] Feb, Essential hypertension I10 a nd Major depressive disorder, single episode, moderate F32.1 [place] [address] [id number] [address] [place] [phone] Oct, Moderate episode of recurren t major depressive disorder F33.1 [facility] [address] [id number] [address] [place] [phone] Sep, Moderate episode of recurren t major depressive disorder F33.1 [place] [address] [id number] [address] [place] [address] Sep, Moderate episode of recurren t major depressive disorder F33.1 [place] [address] [id number] [address] [place] [address] Aug, Moderate episode of recurren t major depressive disorder F33.1 [facility] [address] [id number] [address] [place] [phone] Jul, Moderate episode of recurren t major depressive disorder F33.1 [facility] [address] [id number] [address] [place] [address] Apr, Moderate episode of recurren t major depressive disorder F33.1 [facility] [address] [id number] [address] [place] [phone] Apr, Essential hypertension I10 [facility] [address] [id number] [address] [place] [phone] Dec, Moderate episode of recurren t major depressive disorder F33.1 [facility] [address] [id number] [address] [place] [address] November, Major depressive disorder, s ramin episode, moderate F32.1 [facility] [address] [id number] [address] [place] [phone] November, [facility] [address] [id number] [address] [place] [phone] November, Depressive disorder F32.9 an d Essential hypertension I10 [facility] [address] [id number] [address] [place] [address] November, [facility] [address] [facility] [id number] [address] [place] [phone] Sep, Acute bronchitis due to infe ction J20.8 [facility] [address] [id number] [address] [place] [phone] May, Essential hypertension I10 [facility] [address] [id number] [address] [place] [phone] Apr, [facility] [address] [facility] [id number] [address] [place] [phone] 17 Aug, 2016 Essential hypertension I[address] [facility] [address] [id number] [address] [place] [phone] Jun, Other viral agents as the ca use of diseases classified elsewhere B97.89 ; Acute upper respiratory infection, unspecified J06.9 and Cough R05 [facility] [address] [id number] [address] [place] [phone] Feb, Essential hypertension I10 [facility] [address] [id number] [address] [place] [address] Jan, [facility] [address] [id number] [address] [place] [address] Jan, Essential hypertension, pj gn 401.1 [facility] [address] [id number] [address] [place] [phone] Oct, [facility] [address] [facility] [id number] [address] [place] [phone] Oct, [facility] [address] [id number] [address] [place] [phone] Jul, [facility] [address] [id number] [address] [place] [phone] Jul, [facility] [address] [facility] [id number] [address] [place] [phone] Jul, [facility] [address] [facility] [id number] [address] [place] [phone] Jul, [facility] [address] [id number] [address] [place] [phone] Jun, [facility] [address] [id number] [address] [place] [phone] Jun, [facility] [address] [id number] [address] [place] [phone] Jun, [facility] [address] [facility] [id number] [address] [place] [phone] Jun, [facility] [address] [id number] [address] [place] [phone] May, [facility] [address] [id number] [address] [place] [phone] May, [facility] [address] [id number] [address] [place] [phone] Feb, [facility] [address] [id number] [address] [place] [phone] Feb, [facility] [address] [id number] [address] [place] [phone] Feb, [facility] [address] [id number] [address] [place] [phone] Feb, [facility] [address] [id number] [address] [place] [phone] Feb, [facility] [address] [id number] [address] [place] [phone] Feb, [facility] [address] [id number] [address] [place] [phone] Jan, [facility] [address] [id number] [address] [place] [phone] Jan, [facility] [address] [id number] [address] [place] [phone] Jan, [facility] [address] [id number] [address] [place] [phone] Jan, [facility] [address] [id number] [address] [place] [phone] Jan, [facility] [address] [id number] [address] [place] [phone] Jan, IMMUNIZATIONS No Known Immunizations SOCIAL HISTORY Never Assessed REASON FOR VISIT PLAN OF CARE VITAL SIGNS MEDICATIONS Unknown Medications RESULTS No Results PROCEDURES No Known procedures INSTRUCTIONS MEDICATIONS ADMINISTERED No Known Medications MEDICAL (GENERAL) HISTORY Type Description Date Medical History seasonal allergies Medical History hypertension Medical History no hx seizures
--- OUTSIDE RECORDS SUMMARY | 2019-11-23 15:21 | XMS REPORT ---
Author Author Charlie SHARP Organization [facility] Address [address] [place] [address] Care Team Providers Care Non Destructive Evaluation Manager Name Role Phone KELSY SHARP Unavailable PROBLEMS Type Condition ICD9-CM Code OWG61-AZ Code Onset Dates Condition S tatus SNOMED Code Problem Essential hypertension I10 Active 96966376 Problem Moderate episode of recurrent major depressive disorder F33.1 Active 805059379 Problem Major depressive disorder, single episode, moderate F32.1 Active 58177596 ALLERGIES No Information ENCOUNTERS Encounter Location Date Diagnosis [place] [address] [facility] [id number] [address] [place] [phone] Jun, [place] [address] [id number] [address] [place] [address] Feb, Moderate episode of recurren t major depressive disorder F33.1 [place] [address] [id number] [address] [place] [address] Feb, Essential hypertension I10 a nd Major depressive disorder, single episode, moderate F32.1 [place] [address] [id number] [address] [place] [address] Oct, Moderate episode of recurren t major depressive disorder F33.1 [facility] [address] [id number] [address] [place] [phone] Sep, Moderate episode of recurren t major depressive disorder F33.1 [place] [address] [id number] [address] [place] [phone] Sep, Moderate episode of recurren t major depressive disorder F33.1 [place] [address] [id number] [address] [place] [address] Aug, Moderate episode of recurren t major depressive disorder F33.1 [facility] [address] [id number] [address] [place] [phone] Jul, Moderate episode of recurren t major depressive disorder F33.1 [facility] [address] [id number] [address] [place] [address] Apr, Moderate episode of recurren t major depressive disorder F33.1 [facility] [address] [id number] [address] [place] [address] Apr, Essential hypertension I10 [facility] [address] [id number] [address] [place] [phone] Dec, Moderate episode of recurren t major depressive disorder F33.1 [facility] [address] [id number] [address] [place] [phone] November, Major depressive disorder, s ramin episode, moderate F32.1 [facility] [address] [id number] [address] [place] [phone] November, [facility] [address] [id number] [address] [place] [address] November, Depressive disorder F32.9 an d Essential hypertension I10 [facility] [address] [id number] [address] [place] [phone] November, [facility] [address] [facility] [id number] [address] [place] [address] Sep, Acute bronchitis due to infe ction J20.8 [facility] [address] [id number] [address] [place] [phone] May, Essential hypertension I10 [facility] [address] [id number] [address] [place] [address] Apr, [facility] [address] [facility] [id number] [address] [place] [phone] 17 Aug, 2016 Essential hypertension I10 [facility] [address] [id number] [address] [place] [address] Jun, Other viral agents as the ca use of diseases classified elsewhere B97.89 ; Acute upper respiratory infection, unspecified J06.9 and Cough R05 [facility] [address] [id number] [address] [place] [phone] Feb, Essential hypertension I10 [facility] [address] [id number] [address] [place] [address] Jan, [facility] [address] [id number] [address] [place] [address] Jan, Essential hypertension, pj gn 401.1 [facility] [address] [id number] [address] [place] [phone] Oct, [facility] [address] [facility] [id number] [address] [place] [phone] Oct, [facility] [address] [id number] [address] [place] [phone] Jul, [facility] [address] [id number] [address] [place] [phone] Jul, [facility] [address] [facility] [id number] [address] [place] [phone] Jul, [facility] [address] [facility] [id number] [address] [place] [id number] Jul, [facility] [address] [id number] [address] [place] [phone] Jun, [facility] [address] [id number] [address] [place] [phone] Jun, [facility] [address] [id number] [address] [place] [phone] Jun, [facility] [address] [facility] [id number] [address] [place] [phone] Jun, [facility] [address] [id number] [address] [place] [phone] May, [facility] [address] [id number] [address] [place] [phone] May, [facility] [address] [id number] [address] [place] [phone] Feb, [facility] [address] [id number] [address] [place] [phone] Feb, [facility] [address] [id number] [address] [place] [phone] Feb, [facility] [address] [id number] [address] [place] [phone] Feb, [facility] [address] [id number] [address] [place] [phone] Feb, [facility] [address] [id number] [address] [place] [phone] Feb, [facility] [address] [id number] [address] [place] [phone] Jan, [facility] [address] [id number] [address] [place] [phone] Jan, [facility] [place] [address] [id number] [address] [place] [phone] Jan, [facility] [place] [address] [id number] [address] [place] [phone] Jan, [facility] [place] [address] [id number] [address] [place] [phone] Jan, [facility] [place] [address] [id number] [address] [place] [phone] Jan, IMMUNIZATIONS No Known Immunizations SOCIAL HISTORY Never Assessed REASON FOR VISIT PLAN OF CARE VITAL SIGNS MEDICATIONS Unknown Medications RESULTS No Results PROCEDURES No Known procedures INSTRUCTIONS MEDICATIONS ADMINISTERED No Known Medications MEDICAL (GENERAL) HISTORY Type Description Date Medical History seasonal allergies Medical History hypertension Medical History no hx seizures
--- OUTSIDE RECORDS SUMMARY | 2019-11-23 15:21 | XMS REPORT ---
Author Author Charlie SHARP Organization [facility] [place] Address [address] [place] [address] Care Team Providers Care Paper Reel Operator Name Role Phone KELSY SHARP Unavailable PROBLEMS Type Condition ICD9-CM Code UZP01-IE Code Onset Dates Condition S tatus SNOMED Code Problem Essential hypertension I10 Active 86487212 Problem Moderate episode of recurrent major depressive disorder F33.1 Active 281994759 Problem Major depressive disorder, single episode, moderate F32.1 Active [id number] ALLERGIES No Information ENCOUNTERS Encounter Location Date Diagnosis [place] [address] [address] [facility] [id number] [address] [place] [phone] Jun, [place] [address] [id number] [address] [place] [phone] Feb, Moderate episode of recurren t major depressive disorder F33.1 [place] [address] [id number] [address] [place] [phone] Feb, Essential hypertension I10 a nd Major depressive disorder, single episode, moderate F32.1 [place] [address] [id number] [address] [place] [id number] Oct, Moderate episode of recurren t major depressive disorder F33.1 [facility] [place] [address] [id number] [address] [place] [address] Sep, Moderate episode of recurren t major depressive disorder F33.1 [place] [address] [id number] [address] [place] [id number] Sep, Moderate episode of recurren t major depressive disorder F33.1 [place] [address] [id number] [address] [place] [id number] Aug, Moderate episode of recurren t major depressive disorder F33.1 [facility] [place] [address] [id number] [address] [place] [phone] Jul, Moderate episode of recurren t major depressive disorder F33.1 [facility] [place] [address] [id number] [address] [place] [id number] Apr, Moderate episode of recurren t major depressive disorder F33.1 [facility] [place] [address] [id number] [address] [place] [phone] Apr, Essential hypertension I10 [facility] [place] [address] [id number] [address] [place] [phone] Dec, Moderate episode of recurren t major depressive disorder F33.1 [facility] [place] [address] [id number] [address] [place] [phone] November, Major depressive disorder, s ramin episode, moderate F32.1 [facility] [place] [address] [id number] [address] [place] [phone] November, [facility] [place] [address] [id number] [address] [place] [phone] November, Depressive disorder F32.9 an d Essential hypertension I10 [facility] [place] [address] [id number] [address] [place] [phone] November, [facility] [place] [address] [facility] [id number] [address] [place] [phone] Sep, Acute bronchitis due to infe ction J20.8 [facility] [place] [address] [id number] [address] [place] [phone] May, Essential hypertension I10 [facility] [place] [address] [id number] [address] [place] [phone] Apr, [facility] [place] [address] [facility] [id number] [address] [place] [phone] 17 Aug, 2016 Essential hypertension I10 [facility] [address] [id number] [address] [place] [phone] Jun, Other viral agents as the ca use of diseases classified elsewhere B97.89 ; Acute upper respiratory infection, unspecified J06.9 and Cough R05 [facility] [place] [address] [id number] [address] [place] [phone] Feb, Essential hypertension I10 [facility] [place] [address] [id number] [address] [place] [phone] Jan, [facility] [place] [address] [id number] [address] [place] [phone] Jan, Essential hypertension, pj gn 401.1 [facility] [place] [address] [id number] [address] [place] [phone] Oct, [facility] [place] [address] [facility] [id number] [address] [place] [phone] Oct, [facility] [place] [address] [id number] [address] [place] [phone] Jul, [facility] [place] [address] [id number] [address] [place] [phone] Jul, [facility] [place] [address] [facility] [id number] [address] [place] [phone] Jul, [facility] [place] [address] [facility] [id number] [address] [place] [id number] Jul, [facility] [place] [address] [id number] [address] [place] [phone] Jun, [facility] [place] [address] [id number] [address] [place] [phone] Jun, [facility] [place] [address] [id number] [address] [place] [phone] Jun, [facility] [place] [address] [facility] [id number] [address] [place] [phone] Jun, [facility] [place] [address] [id number] [address] [place] [phone] May, [facility] [place] [address] [id number] [address] [place] [phone] May, [facility] [place] [address] [id number] [address] [place] [phone] Feb, [facility] [place] [address] [id number] [address] [place] [phone] Feb, [facility] [place] [address] [id number] [address] [place] [phone] Feb, [facility] [place] [address] [id number] [address] [place] [phone] Feb, [facility] [place] [address] [id number] [address] [place] [phone] Feb, [facility] [place] [address] [id number] [address] [place] [phone] Feb, [facility] [place] [address] [id number] [address] [place] [phone] Jan, [facility] [place] [address] [id number] [address] [place] [id number] Jan, [facility] [place] [address] [id number] [address] [place] [phone] Jan, [facility] [place] [address] [id number] [address] [place] [id number] Jan, [facility] [place] [address] [id number] [address] [place] [phone] Jan, [facility] [place] [address] [id number] [address] [place] [phone] Jan, IMMUNIZATIONS No Known Immunizations SOCIAL HISTORY Never Assessed REASON FOR VISIT PLAN OF CARE VITAL SIGNS Blood pressure systolic 156 mmHg 2014-02-25 Blood pressure diastolic 98 mmHg 2014-02-25 MEDICATIONS Unknown Medications RESULTS No Results PROCEDURES Procedure Date Ordered Result Body Site BLOOD PRESSURE, MEASURED Feb 25, 2014 INSTRUCTIONS MEDICATIONS ADMINISTERED No Known Medications MEDICAL (GENERAL) HISTORY Type Description Date Medical History seasonal allergies Medical History hypertension Medical History no hx seizures
--- OUTSIDE RECORDS SUMMARY | 2019-11-23 15:21 | XMS REPORT ---
Author Author Charlie Fraga Doctor Organization [facility] Address Unknown Phone Unavailable Care Team Providers Care Strategy Intern Name Role Phone Migration, Doctor Unavailable Unavailable PROBLEMS Type Condition ICD9-CM Code [id number] Code Onset Dates Condition S tatus SNOMED Code Problem Essential hypertension I10 Active [id number] Problem Moderate episode of recurrent major depressive disorder F33.1 Active 296513006 Problem Major depressive disorder, single episode, moderate F32.1 Active 66570477 ALLERGIES No Information ENCOUNTERS Encounter Location Date Diagnosis [facility] [place] [address] [id number] [address] [place] [phone] Oct, [place] [address] [id number] [address] [place] [phone] Oct, [facility] [place] [address] [id number] [address] [place] [phone] Sep, Moderate episode of recurren t major depressive disorder F33.1 [facility] [place] [address] [id number] [address] [place] [phone] Sep, Moderate episode of recurren t major depressive disorder F33.1 [facility] [place] [address] [id number] [address] [place] [phone] Aug, Moderate episode of recurren t major depressive disorder F33.1 [facility] [place] [address] [id number] [address] [place] [phone] Jul, Moderate episode of recurren t major depressive disorder F33.1 [facility] [place] [address] [id number] [address] [place] [phone] Apr, Moderate episode of recurren t major depressive disorder F33.1 [facility] [place] [address] [id number] [address] [place] [phone] Apr, Essential hypertension I10 [facility] [place] [address] [facility] [id number] [address] [place] [id number] Dec, Moderate episode of recurren t major depressive disorder F33.1 [facility] [place] [address] [facility] [id number] [address] [place] [phone] November, Major depressive disorder, s ramin episode, moderate F32.1 [facility] [place] [address] [facility] [id number] [address] [place] [phone] November, [facility] [place] [address] [facility] [id number] [address] [place] [phone] November, Depressive disorder F32.9 an d Essential hypertension I10 [facility] [place] [address] [facility] [id number] [address] [place] [phone] November, [facility] [place] [address] [facility] [id number] [address] [place] [phone] Sep, Acute bronchitis due to infe ction J20.8 [facility] [place] [address] [facility] [id number] [address] [place] [phone] May, Essential hypertension I10 [facility] [place] [address] [facility] [id number] [address] [place] [phone] Apr, [facility] [place] [address] [facility] [id number] [address] [place] [phone] Aug, Essential hypertension I10 [facility] [address] [facility] [id number] [address] [place] [phone] Jun, Other viral agents as the ca use of diseases classified elsewhere B97.89 ; Acute upper respiratory infection, unspecified J06.9 and Cough R05 [facility] [place] [address] [facility] [id number] [address] [place] [phone] Feb, Essential hypertension I10 [facility] [place] [address] [facility] [id number] [address] [place] [phone] Jan, [facility] [place] [address] [facility] [id number] [address] [place] [phone] Jan, Essential hypertension, pj gn 401.1 [facility] [address] [id number] [address] [place] [address], [place] [address] Oct, [facility] [address] [id number] [address] [place] [address], [place] [address] Oct, [facility] [address] [id number] [address] [place] [address], [place] [address] Jul, [facility] [address] [id number] [address] [place] [address], [place] [address] Jul, [facility] [address] [id number] [address] [place] [address], [place] [address] Jul, [facility] [address] [id number] [address] [place] [address], [place] [address] Jul, [facility] [address] [id number] [address] [place] [address], [place] [address] Jun, [facility] [address] [id number] [address] [place] [address], [place] [address] Jun, [facility] [address] [id number] [address] [place] [address], [place] [address] Jun, [facility] [address] [id number] [address] [place] [address], [place] [address] Jun, [facility] [address] [id number] [address] [place] [address], [place] [address] May, [facility] [address] [id number] [address] [place] [address], [place] [address] May, [facility] [address] [id number] [address] [place] [address], [place] [address] Feb, [facility] [address] [id number] [address] [place] [address], [place] [address] Feb, [facility] [address] [id number] [address] [place] [address], [place] [address] Feb, [facility] [place] [address] [id number] [address] [place] [phone] Feb, [facility] [place] [address] [id number] [address] [place] [phone] Feb, [facility] [place] [address] [id number] [address] [place] [phone] Feb, [facility] [place] [address] [id number] [address] [place] [phone] Jan, [facility] [place] [address] [id number] [address] [place] [phone] Jan, [facility] [place] [address] [id number] [address] [place] [phone] Jan, [facility] [place] [address] [id number] [address] [place] [phone] Jan, [facility] [place] [address] [id number] [address] [place] [phone] Jan, [facility] [place] [address] [id number] [address] [place] [phone] Jan, IMMUNIZATIONS No Known Immunizations SOCIAL HISTORY Never Assessed REASON FOR VISIT [facility] PLAN OF CARE VITAL SIGNS MEDICATIONS Medication Instructions Dosage Frequency Start Date End Date Duration S tatus Loratadine 10 mg take 1 tablet by Oral route 1 time pe r day take at hs Jan, Active Lisinopril 20 mg take 1 tablet by Oral route 1 time pe r day Take in evening Jun, Active Flaxseed Oil 1,000 mg 1 Capsule by Oral route 1 time per day Jan, Active Potassium Gluconate 595 (99) mg 1 Tablet by Po route 1 time per day Jan, Active Vitamin B-6 100 mg 1 Tablet by Po route 1 time per day 2 Jan, Active Centrum Silver 0.4-300-250 mg-mcg-mcg 1 tablet by Oral route 1 time per day Jan, Active Azithromycin 250 mg 2 Tablet by Oral rou te on day 1 then take 1 daily for 4 days Jun, Active RESULTS No Results PROCEDURES No Known procedures INSTRUCTIONS MEDICATIONS ADMINISTERED No Known Medications MEDICAL (GENERAL) HISTORY Type Description Date Medical History seasonal allergies Medical History hypertension Medical History no hx seizures
--- OUTSIDE RECORDS SUMMARY | 2019-11-23 15:22 | XMS REPORT ---
Author Author Charlie SHARP Organization [facility] Address [address] [place] [address] Care Team Providers Care Mold Burner Name Role Phone LILA KELSY Unavailable PROBLEMS Type Condition ICD9-CM Code [id number] Code Onset Dates Condition S tatus SNOMED Code Problem Moderate episode of recurrent major depressive disorder F33.1 Active 764707197 Problem Essential hypertension I10 Active 60014263 Problem Major depressive disorder, single episode, moderate F32.1 Active 90702531 ALLERGIES No Information ENCOUNTERS Encounter Location Date Diagnosis [facility] [address] [id number] [address] [place] [phone] Dec, Moderate episode of recurren t major depressive disorder F33.1 [facility] [address] [id number] [address] [place] [phone] November, Major depressive disorder, s ramin episode, moderate F32.1 [facility] [address] [id number] [address] [place] [phone] November, [facility] [address] [id number] [address] [place] [phone] November, Depressive disorder F32.9 an d Essential hypertension I10 [facility] [address] [id number] [address] [place] [phone] November, [facility] [address] [id number] [address] [place] [phone] Sep, Acute bronchitis due to infe ction J20.8 [facility] [address] [id number] [address] [place] [phone] May, Essential hypertension I10 [facility] [address] [facility] [id number] [address] [place] [phone] Apr, [facility] [address] [id number] [address] [place] [phone] Aug, Essential hypertension I10 [facility] [address] [id number] [address] [place] [phone] Jun, Other viral agents as the ca use of diseases classified elsewhere B97.89 ; Acute upper respiratory infection, unspecified J06.9 and Cough R05 [facility] [address] [id number] [address] [place] [phone] Feb, Essential hypertension I10 [facility] [address] [id number] [address] [place] [phone] Jan, [facility] [address] [facility] [id number] [address] [place] [phone] Jan, Essential hypertension, pj gn 401.1 [facility] [address] [id number] [address] [place] [phone] Oct, [facility] [address] [id number] [address] [place] [phone] Oct, [facility] [address] [facility] [id number] [address] [place] [phone] Jul, [facility] [address] [id number] [address] [place] [phone] Jul, [facility] [address] [id number] [address] [place] [phone] Jul, [facility] [address] [id number] [address] [place] [phone] Jul, [facility] [address] [id number] [address] [place] [phone] Jun, [facility] [address] [facility] [id number] [address] [place] [phone] Jun, [facility] [address] [id number] [address] [place] [phone] Jun, [facility] [address] [id number] [address] [place] [address], [place] [phone] Jun, [facility] [address] [id number] [address] [place] [phone] May, [facility] [address] [id number] [address] [place] [address], [place] [phone] May, [facility] [address] [id number] [address] [place] [phone] Feb, [facility] [address] [id number] [address] [place] [address], [place] [phone] Feb, [facility] [address] [id number] [address] [place] [address], [place] [phone] Feb, [facility] [address] [id number] [address] [place] [phone] Feb, [facility] [address] [id number] [address] [place] [phone] Feb, [facility] [address] [id number] [address] [place] [phone] Feb, [facility] [address] [id number] [address] [place] [phone] Jan, [facility] [address] [id number] [address] [place] [phone] Jan, [facility] [address] [id number] [address] [place] [phone] Jan, [facility] [address] [id number] [address] [place] [phone] Jan, [facility] [address] [id number] [address] [place] [phone] Jan, [facility] [address] [id number] [address] [place] [phone] Jan, IMMUNIZATIONS No Known Immunizations SOCIAL HISTORY Never Assessed REASON FOR VISIT awkard symptoms. Pt c/o irratibility, snapping, and maybe some depression. Trans ition of care scheduled with Faith Lin APRN for 12/12. DONNELL Ríos PLAN OF CARE VITAL SIGNS MEDICATIONS No Known Medications RESULTS No Results PROCEDURES No Known procedures INSTRUCTIONS MEDICATIONS ADMINISTERED No Known Medications MEDICAL (GENERAL) HISTORY Type Description Date Medical History seasonal allergies Medical History hypertension
--- OUTSIDE RECORDS SUMMARY | 2019-11-23 15:22 | XMS REPORT ---
Author Author Charlie MANNING [facility] Address [address] [place] [address] Care Team Providers Care Exercise Specialist Name Role Phone DAYAMI MANNING Unavailable PROBLEMS Type Condition ICD9-CM Code [id number]-YR Code Onset Dates Condition S tatus SNOMED Code Problem Moderate episode of recurrent major depressive disorder F33.1 Active [id number] Problem Essential hypertension I10 Active 95698281 Problem Major depressive disorder, single episode, moderate F32.1 Active 93412480 ALLERGIES No Known Allergies ENCOUNTERS Encounter Location Date Diagnosis [facility] [place] [address] [facility] [id number] [address] [place] [phone] Dec, Moderate episode of recurren t major depressive disorder F33.1 [facility] [place] [address] [id number] [address] [place] [phone] November, Major depressive disorder, s ramin episode, moderate F32.1 [facility] [place] [address] [id number] [address] [place] [phone] November, [facility] [place] [address] [facility] [id number] [address] [place] [phone] November, Depressive disorder F32.9 an d Essential hypertension I10 [facility] [place] [address] [id number] [address] [place] [phone] November, [facility] [place] [address] [facility] [id number] [address] [place] [phone] Sep, Acute bronchitis due to infe ction J20.8 [facility] [place] [address] [facility] [id number] [address] [place] [phone] May, Essential hypertension I10 [facility] [place] [address] [id number] [address] [place] [phone] Apr, [facility] [place] [address] [id number] [address] [place] [phone] Aug, Essential hypertension I10 [facility] [address] [id number] [address] [place] [phone] Jun, Other viral agents as the ca use of diseases classified elsewhere B97.89 ; Acute upper respiratory infection, unspecified J06.9 and Cough R05 [facility] [place] [address] [id number] [address] [place] [phone] Feb, Essential hypertension I10 [facility] [place] [address] [facility] [id number] [address] [place] [phone] Jan, [facility] [place] [address] [facility] [id number] [address] [place] [phone] Jan, Essential hypertension, pj gn 401.1 [facility] [place] [address] [facility] [id number] [address] [place] [phone] Oct, [facility] [place] [address] [id number] [address] [place] [phone] Oct, [facility] [place] [address] [facility] [id number] [address] [place] [phone] Jul, [facility] [place] [address] [id number] [address] [place] [phone] Jul, [facility] [place] [address] [id number] [address] [place] [phone] Jul, [facility] [place] [address] [id number] [address] [place] [id number] Jul, [facility] [place] [address] [facility] [id number] [address] [place] [phone] Jun, [facility] [place] [address] [facility] [id number] [address] [place] [phone] Jun, [facility] [place] [address] [id number] [address] [place] [phone] Jun, [facility] [address] [id number] [address] [place] [address], [place] [address] Jun, [facility] [address] [id number] [address] [place] [address], [place] [phone] May, [facility] [address] [id number] [address] [place] [address], [place] [phone] May, [facility] [address] [id number] [address] [place] [address], [place] [phone] Feb, [facility] [address] [id number] [address] [place] [address], [place] [phone] Feb, [facility] [address] [id number] [address] [place] [address], [place] [phone] Feb, [facility] [address] [id number] [address] [place] [address], [place] [phone] Feb, [facility] [address] [id number] [address] [place] [address], [place] [phone] Feb, [facility] [address] [id number] [address] [place] [address], [place] [phone] Feb, [facility] [address] [id number] [address] [place] [address], [place] [address] Jan, [facility] [address] [id number] [address] [place] [address], [place] [address] Jan, [facility] [address] [id number] [address] [place] [phone] Jan, [facility] [address] [id number] [address] [place] [phone] Jan, [facility] [address] [id number] [address] [place] [address], [place] [address] Jan, [facility] [address] [id number] [address] [place] [phone] Jan, IMMUNIZATIONS No Known Immunizations SOCIAL HISTORY Never Assessed REASON FOR VISIT Transition of Care from [facility]. Pt would like to discuss behavioral health concer ns. bryant PLAN OF CARE Activity Details Follow Up 6 Weeks Reason:depression VITAL SIGNS Height 69 in 2017-12-12 Weight 248 lbs 2017-12-12 Temperature 97.8 degrees Fahrenheit 2017-12-12 Heart Rate 74 bpm 2017-12-12 Respiratory Rate 20 2017-12-12 BMI 36.62 kg/m2 2017-12-12 Blood pressure systolic 124 mmHg 2017-12-12 Blood pressure diastolic 74 mmHg 2017-12-12 MEDICATIONS Medication Instructions Dosage Frequency Start Date End Date Duration S tatus Sertraline HCl 50 mg Orally Once a day after evening meal 1 tablet November, 30 day(s) Active Lisinopril 20 mg Orally Once a day 1 tablet 24h November, 90 days Active RESULTS No Results PROCEDURES No Known procedures INSTRUCTIONS MEDICATIONS ADMINISTERED No Known Medications MEDICAL (GENERAL) HISTORY Type Description Date Medical History seasonal allergies Medical History hypertension
--- OUTSIDE RECORDS SUMMARY | 2019-11-23 15:22 | XMS REPORT ---
Author Author Charlie SHARP Organization [facility] Address [address] [place] [address] Care Team Providers Care Hydraulic Operator Name Role Phone LILA KELSY Unavailable PROBLEMS Type Condition ICD9-CM Code [id number] Code Onset Dates Condition S tatus SNOMED Code Problem Moderate episode of recurrent major depressive disorder F33.1 Active 505461392 Problem Essential hypertension I10 Active 53033366 Problem Major depressive disorder, single episode, moderate F32.1 Active 77747872 ALLERGIES No Information ENCOUNTERS Encounter Location Date Diagnosis [facility] [address] [facility] [id number] [address] [place] [phone] Dec, Moderate episode of recurren t major depressive disorder F33.1 [facility] [address] [id number] [address] [place] [phone] November, Major depressive disorder, s ramin episode, moderate F32.1 [facility] [address] [id number] [address] [place] [phone] November, [facility] [address] [id number] [address] [place] [phone] November, Depressive disorder F32.9 an d Essential hypertension I10 [facility] [address] [id number] [address] [place] [phone] November, [facility] [address] [id number] [address] [place] [phone] Sep, Acute bronchitis due to infe ction J20.8 [facility] [address] [id number] [address] [place] [phone] May, Essential hypertension I10 [facility] [address] [facility] [id number] [address] [place] [phone] Apr, [facility] [address] [id number] [address] [place] [phone] Aug, Essential hypertension I10 [facility] [address] [id number] [address] [place] [phone] Jun, Other viral agents as the ca use of diseases classified elsewhere B97.89 ; Acute upper respiratory infection, unspecified J06.9 and Cough R05 [facility] [address] [id number] [address] [place] [phone] Feb, Essential hypertension I10 [facility] [address] [id number] [address] [place] [phone] Jan, [facility] [address] [facility] [id number] [address] [place] [phone] Jan, Essential hypertension, pj gn 401.1 [facility] [address] [id number] [address] [place] [phone] Oct, [facility] [address] [id number] [address] [place] [phone] Oct, [facility] [address] [facility] [id number] [address] [place] [phone] Jul, [facility] [address] [id number] [address] [place] [phone] Jul, [facility] [address] [id number] [address] [place] [phone] Jul, [facility] [address] [id number] [address] [place] [phone] Jul, [facility] [address] [id number] [address] [place] [phone] Jun, [facility] [address] [facility] [id number] [address] [place] [phone] Jun, [facility] [address] [id number] [address] [place] [phone] Jun, [facility] [address] [id number] [address] [place] [address], [place] [phone] Jun, [facility] [address] [id number] [address] [place] [phone] May, [facility] [address] [id number] [address] [place] [address], [place] [phone] May, [facility] [address] [id number] [address] [place] [phone] Feb, [facility] [address] [id number] [address] [place] [address], [place] [phone] Feb, [facility] [address] [id number] [address] [place] [address], [place] [phone] Feb, [facility] [address] [id number] [address] [place] [phone] Feb, [facility] [address] [id number] [address] [place] [phone] Feb, [facility] [address] [id number] [address] [place] [phone] Feb, [facility] [address] [id number] [address] [place] [phone] Jan, [facility] [address] [id number] [address] [place] [phone] Jan, [facility] [address] [id number] [address] [place] [phone] Jan, [facility] [address] [id number] [address] [place] [phone] Jan, [facility] [address] [id number] [address] [place] [phone] Jan, [facility] [address] [id number] [address] [place] [phone] Jan, IMMUNIZATIONS No Known Immunizations SOCIAL HISTORY Never Assessed REASON FOR VISIT BH/AT phone response PLAN OF CARE VITAL SIGNS MEDICATIONS No Known Medications RESULTS No Results PROCEDURES No Known procedures INSTRUCTIONS MEDICATIONS ADMINISTERED No Known Medications MEDICAL (GENERAL) HISTORY Type Description Date Medical History seasonal allergies Medical History hypertension
--- OUTSIDE RECORDS SUMMARY | 2019-11-23 15:22 | XMS REPORT | Continuity of Care Document ---
Author Organization Unknown Address Unknown Phone Unavailable Allergies There is no data. Medications There is no data. Problems Date Dx Coded Attending Type Code Diagnosis Diagnosed By 02/10/2014 KELSY SHARP APRN 401 .1 HYPERTENSION, BENIGN ESSENTIAL 02/10/2014 GIULIANA CHIRINOS DO 401.1 HYPERTENSION, BENIGN ESSENTIAL 02/10/2014 KELSY SHARP APRN 401 .1 HYPERTENSION, BENIGN ESSENTIAL 02/10/2014 KELSY SHARP APRN 401 .1 HYPERTENSION, BENIGN ESSENTIAL 02/25/2014 GIULIANA CHIRINOS DO V81.1 HYPERTENSION SCREENING 02/25/2014 KELSY SHARP APRN L V81 .1 HYPERTENSION SCREENING 02/25/2014 KELSY SHARP APRN V81 .1 HYPERTENSION SCREENING 07/19/2014 KELSY SHARP APRN L 461 .9 SINUSITIS ACUTE Procedures Code [place] [address] ROUT INE VENIPUNCTURE 02/10/20147032845 GF R CALC (RESULT ONLY) 02/10/2014 46451 CMP 02/10/2014 30791 TSH 02/10/2014 2000F BLOO D PRESSURE CHECK 02/25/2014 Results There is no data. Encounters ACCT No. Visit Date/Time Discharge Status Pt. Type Provider Facility Loc./Unit Complaint [id number] 07/19/2014 08:48:00 07/19/2014 23:59: 59 CLS Outpatient KELSY SHARP APRN [id number] 06/22/2014 10:57:00 06/22/2014 23:59: 59 CLS Outpatient KELSY SHARP APRN [id number] 02/25/2014 14:38:00 02/25/2014 23:59: 59 CLS Outpatient GIULIANA CHIRINOS DO [id number] 02/10/2014 13:42:00 02/10/2014 23:59: 59 CLS Outpatient KELSY SHARP APRN [id number] 11/04/2019 18:35:00 11/04/2019 23:59:5 9 [facility] Outpatient [facility]
--- OUTSIDE RECORDS SUMMARY | 2019-11-23 15:22 | XMS REPORT ---
Author Author Charlie SHARP Organization [employer] Address Unknown Phone Unavailable Care Team Providers Care Boat Motor Mechanic Name Role Phone KELSY SHARP CP Unavailable Allergies, Adverse Reactions, Alerts Substance Reaction Event Type N.K.D.A. Info Not Available Non Drug Allergy Problems Problem Type Condition Code Onset Dates Condition Statu s Assessment Essential hypertension I10 Activ e Problem Essential hypertension I10 Activ e Medications Medication Code System Code Instructions Start Date End Date Status Dosage Centrum Silver [facility][NOTE 3] [address]-25 0.4-300-250 mg-mcg-mcg February 10 014 1 tablet by Oral route 1 time per day Potassium Gluconate [facility][NOTE 3] 68[address] 595 (99) mg February 10, 2014 1 Tablet by Po route 1 time per day Vitamin B-6 [facility][NOTE 3] [address]-45 100 mg February 10, 2014 1 Tablet by Po route 1 time per day Loratadine [facility][NOTE 3] [address]-97 10 mg February 10, 2014 t akshat 1 tablet by Oral route 1 time per day take at hs Lisinopril [facility][NOTE 3] [address]-10 20MG Orally Once a day 1 tablet Procedures Procedure Coding System Code Date Office Visit, Est Pt., Level 4 CPT-4 67979 A 2015 Vital Signs Date/Time: Feb 21, 2016 Cardiac Monitoring Heart Rate 86 bpm Weight 251.4 lbs Height 69 in BMI 37.12 Index Blood Pressure Diastolic 96 mmHg Blood Pressure Systolic 162 mmHg Results No Known Results Summary Purpose [employer] Submission
--- OUTSIDE RECORDS SUMMARY | 2019-11-23 15:22 | XMS REPORT ---
Author Author Charlie SHARP Organization [facility] Address [address] [place] [address] Care Team Providers Care Associate Application Developer Name Role Phone JAYCEYahir KELSY Unavailable PROBLEMS Type Condition ICD9-CM Code [id number] Code Onset Dates Condition S tatus SNOMED Code Problem Essential hypertension I10 Active [id number] ALLERGIES No Information ENCOUNTERS Encounter Location Date Diagnosis [facility] [address] [id number] [address] [place] [id number] Sep, Acute bronchitis due to infe ction J20.8 [facility] [address] [id number] [address] [place] [phone] May, Essential hypertension I10 [facility] [address] [facility] [id number] [address] [place] [phone] Apr, [facility] [address] [id number] [address] [place] [phone] Aug, Essential hypertension I10 [facility] [address] [id number] [address] [place] [id number] Jun, Other viral agents as the ca use of diseases classified elsewhere B97.89 ; Acute upper respiratory infection, unspecified J06.9 and Cough R05 [facility] [address] [facility] [id number] [address] [place] [phone] Feb, Essential hypertension I10 [facility] [address] [id number] [address] [place] [phone] Jan, [facility] [address] [id number] [address] [place] [id number] Jan, Essential hypertension, pj gn 401.1 [facility] [address] [id number] [address] [place] [address], [place] [address] 14 Oct, 2014 [facility] [address] [id number] [address] [place] [address], [place] [address] Oct, [facility] [address] [id number] [address] [place] [address], [place] [address] Jul, [facility] [address] [id number] [address] [place] [address], [place] [address] Jul, [facility] [address] [id number] [address] [place] [address], [place] [address] Jul, [facility] [address] [id number] [address] [place] [address], [place] [address] Jul, [facility] [address] [id number] [address] [place] [address], [place] [address] Jun, [facility] [address] [id number] [address] [place] [address], [place] [address] Jun, [facility] [address] [id number] [address] [place] [address], [place] [address] Jun, [facility] [address] [id number] [address] [place] [address], [place] [address] Jun, [facility] [address] [id number] [address] [place] [address], [place] [address] May, [facility] [address] [id number] [address] [place] [address], [place] [address] May, [facility] [address] [id number] [address] [place] [address], [place] [address] Feb, [facility] [address] [id number] [address] [place] [address], [place] [address] Feb, [facility] [address] [id number] [address] [place] [address], [place] [address] Feb, [facility] [address] [id number] [address] [place] [address], [place] [address] Feb, [facility] [address] [id number] [address] [place] [phone] Feb, [facility] [address] [id number] [address] [place] [phone] Feb, [facility] [address] [id number] [address] [place] [phone] Jan, [facility] [address] [id number] [address] [place] [phone] Jan, [facility] [address] [id number] [address] [place] [phone] Jan, [facility] [address] [id number] [address] [place] [phone] Jan, [facility] [address] [id number] [address] [place] [phone] Jan, [facility] [address] [id number] [address] [place] [phone] Jan, IMMUNIZATIONS No Known Immunizations SOCIAL HISTORY Never Assessed REASON FOR VISIT Med Refill PLAN OF CARE VITAL SIGNS MEDICATIONS Medication Instructions Dosage Frequency Start Date End Date Duration S angelica Lisinopril 20MG Orally Once a day 1 tablet 24h 30 Active RESULTS No Results PROCEDURES No Known procedures INSTRUCTIONS MEDICATIONS ADMINISTERED No Known Medications MEDICAL (GENERAL) HISTORY Type Description Date Medical History seasonal allergies Medical History hypertension
--- OUTSIDE RECORDS SUMMARY | 2019-11-23 15:22 | XMS REPORT ---
Author Author Charlie SHARP [facility] Address [address] [place] [address] Care Team Providers Care Cloth Measurer Name Role Phone KELSY SHARP Unavailable PROBLEMS Type Condition ICD9-CM Code CEZ18-FA Code Onset Dates Condition S tatus SNOMED Code Problem Essential hypertension I10 Active [id number] ALLERGIES No Information SOCIAL HISTORY Never Assessed PLAN OF CARE VITAL SIGNS MEDICATIONS Medication Instructions Dosage Frequency Start Date End Date Duration S tatus Lisinopril 20MG Orally Once a day 1 tablet 24h 90 da ys Active RESULTS No Results PROCEDURES No Known procedures IMMUNIZATIONS No Known Immunizations MEDICAL (GENERAL) HISTORY Type Description Date Medical History seasonal allergies Medical History hypertension
--- OUTSIDE RECORDS SUMMARY | 2019-11-23 15:22 | XMS REPORT ---
Author Author Charlie SHARP Organization [facility] Address [address] [place] [address] Care Team Providers Care Psychiatrist Name Role Phone LILA KELSY Unavailable PROBLEMS Type Condition ICD9-CM Code [id number] Code Onset Dates Condition S tatus SNOMED Code Problem Moderate episode of recurrent major depressive disorder F33.1 Active [id number] Problem Essential hypertension I10 Active [id number] Problem Major depressive disorder, single episode, moderate F32.1 Active 23235160 ALLERGIES No Known Allergies ENCOUNTERS Encounter Location Date Diagnosis [facility] [address] [facility] [id number] [address] [place] [id number] Dec, Moderate episode of recurren t major depressive disorder F33.1 [facility] [address] [id number] [address] [place] [phone] November, Major depressive disorder, s ramin episode, moderate F32.1 [facility] [address] [id number] [address] [place] [phone] November, [facility] [address] [id number] [address] [place] [phone] November, Depressive disorder F32.9 an d Essential hypertension I10 [facility] [address] [id number] [address] [place] [id number] November, [facility] [address] [facility] [id number] [address] [place] [id number] Sep, Acute bronchitis due to infe ction J20.8 [facility] [address] [facility] [id number] [address] [place] [phone] May, Essential hypertension I10 [facility] [address] [id number] [address] [place] [phone] Apr, [facility] [address] [id number] [address] [place] [phone] Aug, Essential hypertension I10 [facility] [address] [id number] [address] [place] [phone] Jun, Other viral agents as the ca use of diseases classified elsewhere B97.89 ; Acute upper respiratory infection, unspecified J06.9 and Cough R05 [facility] [address] [id number] [address] [place] [phone] Feb, Essential hypertension I10 [facility] [address] [id number] [address] [place] [phone] Jan, [facility] [address] [facility] [id number] [address] [place] [phone] Jan, Essential hypertension, jp gn 401.1 [facility] [address] [id number] [address] [place] [phone] Oct, [facility] [address] [id number] [address] [place] [phone] Oct, [facility] [address] [facility] [id number] [address] [place] [phone] Jul, [facility] [address] [id number] [address] [place] [id number] Jul, [facility] [address] [id number] [address] [place] [phone] Jul, [facility] [address] [id number] [address] [place] [phone] Jul, [facility] [address] [id number] [address] [place] [phone] Jun, [facility] [address] [id number] [address] [place] [phone] Jun, [facility] [address] [id number] [address] [place] [phone] Jun, [facility] [address] [id number] [address] [place] [address], [place] [address] Jun, [facility] [address] [id number] [address] [place] [address], [place] [address] May, [facility] [address] [id number] [address] [place] [address], [place] [address] May, [facility] [address] [id number] [address] [place] [address], [place] [address] Feb, [facility] [address] [id number] [address] [place] [address], [place] [address] Feb, [facility] [address] [id number] [address] [place] [address], [place] [address] Feb, [facility] [address] [id number] [address] [place] [address], [place] [address] Feb, [facility] [address] [id number] [address] [place] [address], [place] [address] Feb, [facility] [address] [id number] [address] [place] [phone] Feb, [facility] [address] [id number] [address] [place] [address], [place] [address] Jan, [facility] [address] [id number] [address] [place] [phone] Jan, [facility] [address] [id number] [address] [place] [phone] Jan, [facility] [address] [id number] [address] [place] [phone] Jan, [facility] [address] [id number] [address] [place] [phone] Jan, [facility] [address] [id number] [address] [place] [phone] Jan, IMMUNIZATIONS No Known Immunizations SOCIAL HISTORY Never Assessed REASON FOR VISIT cough--tjanssenMA, --few weeks ago he missed a few days of work, went to Urgent Care received medications , --starting last night he started coughing so much th at he will throw up, back pain from coughing. Chest feels as if it has a knot at sternum. PLAN OF CARE Activity Details Follow Up if not improving with PCP or reg follow up Reason: VITAL SIGNS Height 69 in 2017-10-01 Weight 247.3 lbs 2017-10-01 Temperature 98.6 degrees Fahrenheit 2017-10-01 Heart Rate 100 bpm 2017-10-01 Respiratory Rate 20 2017-10-01 BMI 36.52 kg/m2 2017-10-01 Blood pressure systolic 128 mmHg 2017-10-01 Blood pressure diastolic 74 mmHg 2017-10-01 MEDICATIONS Medication Instructions Dosage Frequency Start Date End Date Duration S tatus Cefdinir 300 MG Orally every 12 hrs 1 capsule 12h Sep, 2 4 Sep, 2017 10 day(s) Active PredniSONE 20 mg Orally am and noon 1 tablet Sep, 1 9 Sep, 2017 05 days Active Azithromycin 250 MG Orally Once a day 2 tablets on the fi rst day, then 1 tablet daily for 4 days 24h 5 day(s) Active ProAir HFA 108 (90 Base) MCG/ACT Inhalation 3 times a day 2 puffs a s needed 8h Sep, Active Loratadine 10 mg take 1 tablet by Oral route 1 time pe r day take at hs 24 Jan, 2014 Active Lisinopril 20 mg Orally Once a day 1 tablet 24h 90 d ays Active RESULTS No Results PROCEDURES No Known procedures INSTRUCTIONS MEDICATIONS ADMINISTERED No Known Medications MEDICAL (GENERAL) HISTORY Type Description Date Medical History seasonal allergies Medical History hypertension
== END 2019-11-23 13:32 | disposition home or self-care (01) ==
LOC: EDUNIT# 12:23 → ER 12:25
DX: K08.89 Other specified disorders of teeth and supporting structures (principal)
CPT/HCPCS: 99282